=== PATIENT | female | born 1940 | race Caucasian/White ===

== ENCOUNTER 2016-06-18 13:56 | Inpatient (IN) | payer MEDICAID, MEDICARE ==
[~2016-06-18] VITALS: Ht 154.9 cm; Wt 54.2 kg
[~2016-06-18 13:56] MED LIST: ASPI81TA PO; ASPI81TA85 PO; ATOR1TAB21 PO; AUGM875T27 PO; LEVO75TA4 PO; NICO21PAT TD
[2016-06-18] MEDS ORDERED: MIRT30TA3 PO (14:39)
[2016-06-18] MEDS ORDERED: DONETAB5 PO (14:39)
[2016-06-18] MEDS ORDERED: MELA3TAB PO (14:39)
[2016-06-18] MEDS ORDERED: ASPI1TAB PO (14:39)
[2016-06-18 14:50] LABS: BASO % 0.3 % (0.0-1.0); EOS # 0.1 K/mm3 (0.0-0.50); EOS % 1.5 % (0.0-3.0); LARGE UNSTAINED CELL # 0.1 K/mm3 (0.0-0.4); LARGE UNSTAINED CELL % 1.6 % (0.0-4.0); LYMPH # 1.3 K/mm3 (1.5-4.5); LYMPH % 17.6 % (24.0-44.0); MEAN CORPUSCULAR HEMOGLOBIN 29.9 pg (27.0-33.0); MEAN CORPUSCULAR HGB CONC 32.4 g/dl (32.0-36.5); MEAN CORPUSCULAR VOLUME 92.4 fl (80.0-96.0); MONO # 0.3 K/mm3 (0.0-0.8); MONO % 4.4 % (0.0-5.0); NEUTROPHILS # 5.7 K/mm3 (1.8-7.7); NEUTROPHILS % 74.6 % (36.0-66.0); PLATELET COUNT, AUTOMATED 203 k/mm3 (150-450); RED CELL DISTRIBUTION WIDTH 13.6 % (11.5-14.5); WHITE BLOOD COUNT 7.6 K/mm3 (4.0-10.0)
--- NOTE | 2016-06-18 15:22 | REP ---
CT head without contrast: History: Altered mental status. Comparison: 10/30/2015 An area of decreased attenuation is present in the posterior left temporal and parietal lobes. There is dilatation of the overlying cortical sulci. This represents and old infarction. Areas of decreased attenuation are present in the periventricular and subcortical white matter. This represents small vessel ischemic disease. There is no intraparenchymal hemorrhage, mass or midline shift. The ventricular system and cortical sulci as well as subarachnoid space in the posterior fossa are dilated consistent with moderate volume loss. There is no extracerebral collection. There is no fracture. The visualized sinuses are clear. IMPRESSION: 1. 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 2. Small vessel ischemic disease. 3. Moderate volume loss. Signed by Uriah Calderon MD 06/18/2016 03:27 P
[2016-06-18 15:29] LABS: AMPHETAMINES LEVEL URINE NEGATIVE (NEGATIVE); BENZODIAZEPINES URINE NEGATIVE (NEGATIVE); COCAINE METABOLITE URINE NEGATIVE (NEGATIVE); CONTROL LINE INT CTR LINE PRESENT; METHADONE URINE NEGATIVE (NEGATIVE); OPIATES URINE NEGATIVE (NEGATIVE); TRICYCLIC ANTIDEPRESS URINE NEGATIVE (NEGATIVE)
--- NOTE | 2016-06-18 15:31 | REP ---
Portable chest, AP view, 02:47 p.m.: Comparison is 10/30/2015. There are no focal infiltrates or effusions. There is mild diffuse chronic interstitial coarsening, unchanged, compatible with interstitial lung disease versus vascular engorgement. Sternotomy wires and cardiomegaly are again noted, on changed. Impression: There is no significant interval change. Signed by Jose Davis MD 06/18/2016 03:23 P
[2016-06-18] MEDS ORDERED: LORazepam 2 MG/ML VIAL (J2060) As Ordered ONE ×2 (15:51→19:06)
[2016-06-18 15:52] LABS: INR 1.03
[2016-06-18 16:04] LABS: ALBUMIN 2.8 GM/DL (3.2-5.2); ALBUMIN/GLOBULIN RATIO 0.85 (1.00-1.93); ALKALINE PHOSPHATASE 74 U/L (45-117); ALT/SGPT 23 U/L (12-78); ANION GAP 5 MEQ/L (8-16); AST/SGOT 26 U/L (15-37); BILIRUBIN,DIRECT < 0.1 MG/DL (0.0-0.2); BILIRUBIN,TOTAL 0.3 MG/DL (0.2-1.0); BLOOD UREA NITROGEN 12 MG/DL (7-18); CALCIUM LEVEL 8.8 MG/DL (8.8-10.2); CARBON DIOXIDE LEVEL 35 MEQ/L (21-32); CHLORIDE LEVEL 106 MEQ/L (98-107); CREATININE FOR GFR 1.05 MG/DL (0.55-1.02); GLOMERULAR FILTRATION RATE 54.1 (>39); GLUCOSE, FASTING 106 MG/DL (83-110); POTASSIUM SERUM 2.5 MEQ/L (3.5-5.1); SODIUM LEVEL 146 MEQ/L (136-145); TOTAL PROTEIN 6.1 GM/DL (6.4-8.2)
[2016-06-18] MEDS ORDERED: POTASSIUM CHLORIDE 10 MEQ SR TABLET As Ordered ONE (16:25)
[2016-06-18] MEDS ORDERED: KCL 10MEQ IN STERILE WATER 100ML As Ordered ONE (16:26)
[2016-06-18] MEDS ORDERED: ACETAMINOPHEN TAB 650MG DOSE (2X325MG) PO PRN (17:45)
[2016-06-18] MEDS ORDERED: ONDANSETRON 4MG/2ML VIAL (J2405) IV PRN (17:45)
[2016-06-18] MEDS ORDERED: HALOPERIDOL 5 MG/ML VIAL (J1630) IM PRN (17:45)
[2016-06-18] MEDS ORDERED: HALOPERIDOL 5 MG/ML VIAL (J1630) As Ordered ONE (18:00)
--- NOTE | 2016-06-18 18:16 | HPEPDOC ---
Medical History and Physical Date of Admission Jun 18, 2016 at 17:34 History and Physical PRIMARY CARE PROVIDER: ATTENDING: Janice Pires MD CHIEF COMPLAINT: Syncope HISTORY OF PRESENT ILLNESS: This is a 75-year-old female past mental history of advanced dementia, CVA with right upper extremity weakness, CAD status post CABG, hypothyroidism, hyperlipidemia who presents with a syncopal episode. states that him and his were sitting at the kitchen table eating lunch, after which the patient's started to experience diaphoresis, closed her eyes, and put head on the table. states that the patient's was unconscious for 1-2 minutes. After which the patient took about an hour to return to her baseline. states that the patient typically has urinary and fecal incontinence for which she uses a diaper and he changes her 5-8x/day. Denies any convulsions or tongue trauma. states she had no prior episodes of passing out. No history of seizures. Did not complain of any chest pain/palpitations/shortness of breath prior to this incident. PAST MEDICAL HISTORY: As per HPI PAST SURGICAL HISTORY: CABG SOCIAL HISTORY: Denies tobacco, alcohol, illicit drug use. Lives with . FAMILY HISTORY: Noncontributory ALLERGIES: Please see below. REVIEW OF SYSTEMS: HEENT: Denies sore throat/headache CARDIOVASCULAR: Denies chest pain/palpitations RESPIRATORY: No shortness of breath/cough GASTROINTESTINAL: denies nausea/vomiting GENITOURINARY: Denies dysuria/urinary urgency. MUSCULOSKELETAL: Denies myalgias/arthralgias NEUROLOGICAL: Denies any focal weakness Rest of ROS negative. HOME MEDICATIONS: Please see below. PHYSICAL EXAMINATION: Vitals: (see below) General: No acute distress, laying comfortably in bed. HEENT: Moist mucous membranes. Neck: No JVD or lymphadenopathy Cardiac: RRR, No murmurs Pulm: Clear to auscultation b/l. No wheezing, rhonchi Abd: NT/ND + BS Ext: No edema or cyanosis Neuro: Strength 4/5 RUE, 5/5 LUE and BLE. CN 2-12 intact. Negative Babinki. DTR 2+ throughout Difficulty in completing full neuro exam as pt was uncooperative. LABORATORY DATA: See below. IMAGING: CT Head 06/18/16 IMPRESSION: 1. 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 2. Small vessel ischemic disease. 3. Moderate volume loss. CXR 06/18/16 Impression:There is no significant interval change. MICROBIOLOGY: Please see below. ASSESSMENT/PLAN: 1. Syncope- patient reportedly had diaphoresis prior to this episode. We'll trend cardiac markers and check echocardiogram. EKG with no acute ST changes. Given the prolonged altered stay after this episode, there is some question about seizures, although no tongue trauma/convulsions were reported. We'll also check an EEG as well as MRI of the brain. Monitor patient on telemetry. Seizure precautions. Physical therapy, occupational therapy. 2. Hypokalemia - replaced 3. Contraction alkalosis - likely from dehydration - will start gentle IVF hydration 4. H/o CAD s/p CABG - on asa/statin 5. Hypothyroidism - cont synthroid 6. H/o CVA with residual right upper ext weakness - cont asa/statin 7. Advanced dementia 8. HLD - cont statin DVT prophy - enoxaparin Pt will be followed by Dr. Aviles starting 06/19/16 at 7am. Vital Signs Blood pressure 123/64, heart rate 70, respiratory rate 16, oxygen saturation 98 % on room air, afebrile. Laboratory Data Labs 24H Laboratory Tests 2 06/18/16 14:38: White Blood Count 7.6, Red Blood Count 4.33, Hemoglobin 12.9, Hematocrit 40.0, Mean Corpuscular Volume 92.4, Mean Corpuscular Hemoglobin 29.9, Mean Corpuscular Hemoglobin Concent 32.4, Red Cell Distribution Width 13.6, Platelet Count 203, Neutrophils (%) (Auto) 74.6H, Lymphocytes (%) (Auto) 17.6L, Monocytes (%) (Auto) 4.4, Eosinophils (%) (Auto) 1.5, Basophils (%) (Auto) 0.3, Neutrophils # (Auto) 5.7, Lymphocytes # (Auto) 1.3L, Monocytes # (Auto) 0.3, Eosinophils # (Auto) 0.1, Basophils # (Auto) 0.0, Large Unclassified Cells # 0.1 , Large Unclassified Cells % 1.6 06/18/16 15:06: Urine Amorphous Sediment , Urine Amphetamine Level NEGATIVE, Urine Benzodiazepines Screen NEGATIVE, Urine Cannabinoids NEGATIVE, Urine Cocaine Metabolite NEGATIVE, Urine Opiates Screen NEGATIVE, Urine Appearance CLEAR, Urine Color YELLOW, Urine pH 6.0, Urine Specific Addison 1.013, Urine Protein NEGATIVE, Urine Glucose (UA) NEGATIVE, Urine Ketones NEGATIVE, Urine Urobilinogen 0.2, Urine Bilirubin NEGATIVE, Urine Leukocyte Esterase NEGATIVE, Urine Bacteria (Auto) NEGATIVE, Urine Barbiturates, Qualitative NEGATIVE, Urine Blood 1+H, Urine Calcium Carbonate Cryst(Auto) , Urine Calcium Oxalate Cryst ( Auto) , Urine Calcium Phosphate Anna (Auto) , Urine Cellular Casts , Urine Cystine Crystals , Urine Granular Casts (Auto) , Urine Hyaline Casts (Auto) 0, Urine Leucine Crystals , Urine Methadone Screen NEGATIVE, Urine Mucus (Auto) SMALL, Urine Nitrite NEGATIVE, Urine Oval Fat Bodies (Auto) , Urine RBC (Auto) 14H, Urine Renal Epithelial Cells , Urine Sperm (Auto) , Urine Squamous Epithelial Cells 0, Urine Transitional Epithelial Cells , Urine Trichomonas ( Auto) , Urine Tricyclic Antidepressants NEGATIVE, Urine Triple Phosphate Cryst ( Auto) , Urine Tyrosine Crystals , Urine Uric Acid Crystals (Auto) , Urine WBC ( Auto) 5H, Urine Waxy Casts (Auto) , Urine Yeast-Like Cells (Auto) 06/18/16 15:31: Prothromb Time International Ratio 1.03, Prothrombin Time 13.6 06/18/16 15:32: Acetaminophen Level < 2.0L, Aspartate Amino Transf (AST/SGOT) 26, Alanine Aminotransferase (ALT/SGPT) 23, Alkaline Phosphatase 74, Total Bilirubin 0.3, Direct Bilirubin < 0.1, Albumin 2.8L, Albumin/Globulin Ratio 0.85L, Anion Gap 5L , Calcium Level 8.8, Creatine Kinase MB 3.1, Creatine Kinase MB Relative Index 3.19, Glomerular Filtration Rate 54.1, Salicylates Level < 1.7L, Thyroid Stimulating Hormone (TSH) 2.910, Total Creatine Kinase 97, Total Protein 6.1L, Troponin I < 0.02 CBC/BMP Laboratory Tests 06/18/16 14:38 Red Blood Count 4.33, Mean Corpuscular Volume 92.4, Mean Corpuscular Hemoglobin 29.9, Mean Corpuscular Hemoglobin Concent 32.4, Red Cell Distribution Width 13.6 , Neutrophils (%) (Auto) 74.6 H, Lymphocytes (%) (Auto) 17.6 L, Monocytes (%) ( Auto) 4.4, Eosinophils (%) (Auto) 1.5, Basophils (%) (Auto) 0.3, Neutrophils # ( Auto) 5.7, Lymphocytes # (Auto) 1.3 L, Monocytes # (Auto) 0.3, Eosinophils # ( Auto) 0.1, Basophils # (Auto) 0.0 06/18/16 15:32 Microbiology Microbiology 06/18/16 Urine Culture, Received Pending Home Medications Scheduled Aspirin (Aspirin 81) 81 Mg Tab 81 MG PO DAILY Atorvastatin Calcium (Atorvastatin Calcium) 20 Mg Tab 20 MG PO DAILY PT TAKES IN AM Donepezil Hcl (Donepezil HCl) 5 Mg Tab 5 MG PO DAILY Levothyroxine Sodium (Synthroid) 75 Mcg Tab 75 MCG PO QAM Mirtazapine (Mirtazapine) 30 Mg Tab 30 MG PO DAILY Scheduled PRN Melatonin (Melatonin) 3 Mg Tab 3 MG PO DAILY PRN PRN AGITATION Allergies Coded Allergies: No Known Drug Allergy (Verified Allergy, Unknown, 08/11/12) JANICE PIRES MD Jun 18, 2016 18:16
--- NOTE | 2016-06-18 21:34 | ECGEPIP ---
Stationary ECG Study [facility] - ED Test Date: 2016-06-18 Pat Name: KELVIN GUAN Department: Room: - Gender: F Licensing Court Magistrate: ailyn : 1940 Requested By: AMBERLY DURHAM Order Number: [id number] Reading MD: Zulema Fitch Measurements Intervals [place] Rate: 64 P: 44 CO: 124 QRS: -37 QRSD: 106 T: 68 QT: 433 QTc: 447 Interpretive Statements SINUS RHYTHM WITH OCCASIONAL SUPRAVENTRICULAR PREMATURE COMPLEXES MARKED LEFT AXIS DEVIATION POSSIBLE RIGHT VENTRICULAR CONDUCTION DELAY NONSPECIFIC ST & T-WAVE ABNORMALITY SIMILAR 10/30/15 Electronically Signed On 06-18-2016 21:34:10 EST by Zulema Fitch
--- NOTE | 2016-06-18 21:50 | EDDOCDS ---
Nurse's Notes [facility] Name: Angela Patel Age: 75 yrs Sex: Female : 1940 Arrival Date: 06/18/2016 Time: 13:56 Bed MRI Private MD: Kushal Johnson MD Diagnosis: Hypokalemia;Altered mental status, unspecified Presentation: 06/18 13:59 Presenting complaint: EMS states: sitting with and had 1 to 2 minute syncopal kr3 episode. Suicide/Homicide risk assessment- the patient denies having any suicidal and/or homicidal ideations and does not present with any other emotional, behavioral or mental health complaints. Status: Patient is not a in service education teacher or dependent. Transition of care: patient was not received from another setting of care. 13:59 Method Of Arrival: Ambulance kr3 13:59 Acuity: GEENA Level 3 kr3 14:12 Adult Sepsis Screening: The patient does not have new or worsening altered mentation. kr3 Patient's respiratory rate is less than 22. Patient has a qSOFA score of 0- Negative Sepsis Screen. Care prior to arrival: Glucose check. 115. Triage Assessment: 14:12 General: Appears in no apparent distress, comfortable, Behavior is appropriate for age. kr3 General: Appears unkempt. Pain: Denies pain. The patient is triaged at the bedside. See Assessment in Nurses Notes section of ED record. Neurological: Level of Consciousness is awake, confused, Moves all extremities. Facial symmetry appears normal. Respiratory: Respiratory effort is even, unlabored. GI: other incontinent of stool. Derm: Skin is normal. Historical: - Allergies: no known allergies; - Home Meds: 1. aspirin 81 mg Oral chew 1 tab once daily (Last dose: 06/18/2016) 2. mirtazapine 30 mg Oral TbDL 1 tab once daily (Last dose: 06/18/2016) 3. levothyroxine 75 mcg Oral cap 1 cap once daily (Last dose: 06/18/2016) 4. donepezil 5 mg oral TbDL 1 tab once daily (Last dose: 06/18/2016) 5. atorvastatin 20 mg oral tab 1 tab once daily (Last dose: 06/18/2016) - PMHx: CVA; Dementia; Hypercholesterolemia; Hypothyroidism; Alzheimers; - PSHx: CABG; - Social history: Smoking status: Patient uses tobacco products, current every day smoker. No barriers to communication noted, The patient speaks fluent Jamaican. - Family history: Not pertinent. - : The pt / caregiver states he / she is not on anticoagulants. Home medication list is obtained from family members, pill bottles. - Exposure Risk Screening:: None identified. Screenin:15 Screening information is obtained from family members. Fall risk: No risks identified. kr3 Assistance ADL's: Requires assistance with meal preparation, this assistance is provided by family members, bathing, assistance is provided by family members, dressing, assistance is provided by family members, toileting, assistance is provided by family members, housework, assistance is provided by family members, medication administration, assistance is provided by family members. Abuse/DV Screen: The patient / caregiver reports he/she is: pt cannot be assessed for living situation at this time. Nutritional screening: No deficits noted. Advance Directives: Currently, there is no health care proxy. There is no Power of Cashier Or Checker Stock Clerk. home support is adequate. Assessment: 14:16 Reassessment: Patient appears in no apparent distress at this time. Pain: Denies pain. kr3 Neurological: Level of Consciousness is awake, alert, Oriented to person, per normal mentation . 15:45 General: Patient is in stretcher with at bedside. Respirations are even and ja5 unlabored, color is pink. She is having a hard time sitting still and her agitation is increasing. Provider has been notified.. 16:40 General: Patient became restless and pulled her IV out of left hand. Catheter in tact, ja5 no swelling or bleeding noted.. 17:05 General: Patient resting in stretcher with at bedside, respirations are even ja5 and unlabored, color is pink, SR on manager monitoring, patient has no complaints of pain. Food tray has been ordered. at bedside, side rails up, bed in low position.. 17:48 General: Patient confused and tried to get out of bed and leave, she pulled the IV in ja5 her right AC out. Bleeding controlled, no swelling, catheter in tact. . 18:56 General: Patient is very restless and confused, laying in stretcher, PUFFER TENDER at bedside ja5 because had to go home. New IV started to right wrist, patient tolerated well Dr. Pires aware that the MRI was not done due to patient condition.. 20:28 Reassessment: Patient resting at present time. Patient is currently in bed and asleep. cf2 Will continue to monitor . Adult Sepsis Screening: The patient does not have new or worsening altered mentation. Patient's respiratory rate is less than 22. Systolic blood pressure is greater than 100. Patient has a qSOFA score of 0- Negative Sepsis Screen. EENT: No deficits noted. Cardiovascular: No deficits noted. Respiratory: No deficits noted. GI: No deficits noted. : No deficits noted. Derm: No deficits noted. Musculoskeletal: No deficits noted. Injury Description: No known injury. Vital Signs: 14:13 BP 123 / 87 (auto/); ja5 14:13 Pulse 60 MON; ja5 14:13 BP 123 / 87 (auto/); ja5 14:13 Pulse 60 MON; ja5 14:15 BP 123 / 87; Pulse 68; Resp 18; Temp 98.2(O); Pulse Ox 98% on R/A; Weight 55.34 kg; dem1 Height 5 ft. 1 in. (154.94 cm); Pain 0/10; 14:47 Pulse 70 MON; Pulse Ox 97% ; ja5 15:01 BP 123 / 64 (auto/); ja5 15:11 BP 159 / 65 (auto/); ja5 16:43 BP 141 / 65 (auto/); kr3 16:46 Pulse 64 MON; Pulse Ox 92% ; kr3 18:43 BP 158 / 69 (auto/); kr3 18:44 Pulse 66 MON; Resp 16; Temp 98(TE); Pulse Ox 97% ; kr3 19:30 BP 121 / 76; Pulse 60; Resp 18; Pulse Ox 94% on R/A; cf2 21:46 BP 112 / 55; Pulse 54; Resp 18; Temp 98.0; Pulse Ox 97% on R/A; Pain 0/10; cf2 14:15 Body Mass Index 23.05 (55.34 kg, 154.94 cm) [facility] Vitals: 14:12 Log In Time N/A - ambulance arrival. kr3 ED Course: 13:59 Patient visited by Den Addison PCA. jrd 13:59 Stacey Sanford,[place] is Primary Nurse. jrd 13:59 Love Mcneill,RN is Primary Nurse. jrd 13:59 Kushal Johnson is Private Physician. jrd 13:59 Patient moved to Waiting jrd 13:59 Patient moved to 8 jrd 14:00 Triage Initiated kr3 14:02 [facility] ke 14:02 Patient visited by Maximo Sanders FNP. ke 14:02 Patient visited by Maximo Sanders FNP. ke 14:15 The patient / caregiver is instructed regarding the plan of care and ED course. kr3 Accompanied by Family Member, Patient has correct armband on for positive identification. Placed in gown. Bed in low position. Call light in reach. Side rails up X2. media monitor on. Pulse ox on. NIBP on. Cleaned of incontinence. 14:22 EKG done. (by ED staff). Reviewed by Maximo DURHAM. dem1 14:24 Patient visited by Shahida Grewal. dem1 14:40 Maintain field IV. Dressing intact. Site clean & dry. Gauge & site: 20g Left hand. ja5 Flushed left hand. 14:59 Patient visited by Maximo Sanders FNP. ke 15:08 Urinalysis Sent. kr3 15:08 Urine Culture Sent. kr3 15:09 Drug Eval Toxicology ED Only Sent. ld5 15:29 Patient visited by Maximo Sanders FNP. ke 15:34 [facility] Payment Agreement was scanned into [employer] and attached to record. lg 15:45 Patient visited by Love Mcneill RN. ja5 15:52 CT Head Without Contrast Returned. EDMS 15:52 Chest, 1 View Returned. EDMS 16:07 Patient visited by Maximo Sanders FNP. ke 16:14 Notified nurse practitioner of potassium of 2.5. kr3 16:32 Patient visited by Maximo Sanders FNP. ke 16:37 Alber Pires is Hospitalizing Provider. ke 16:37 Patient visited by Rupa Fontana PCA. rs6 16:54 Inserted peripheral IV: in right antecubital area. ja5 18:10 Patient moved to MRI kr3 18:55 Inserted saline lock: 20 gauge in right. ja5 19:09 Primary Nurse role handed off by Stacey Sanford,[place] cf2 19:09 Luciana Crow RN is Primary Nurse. cf2 19:09 Patient visited by Luciana Crow RN. cf2 20:28 No procedures done that require assistance. cf2 20:30 Patient visited by Luciana Crow RN. cf2 20:43 Patient visited by Luciana Crow RN. cf2 21:38 Patient visited by Luciana Crow RN. cf2 21:46 Patient visited by Luciana Crow RN. cf2 21:49 Alayna Trejo MD is Attending Physician. cf2 Administered Medications: Discontinued: NS 0.9% 1000 ml IV at 250 mL/hr continuous Discontinued: Potassium Chloride in 100cc sterile water 10 mEq IV at 100 mL/hr once over 1 hrs 15:40 Drug: NS 0.9% 1000 ml [sodium chloride 0.9 % intravenous solution] Route: IV; Rate: 250 kr3 mL/hr; Site: left hand; 21:36 Follow up: Response: No significant change. cf2 15:53 Drug: LORazepam 0.5 mg [lorazepam 2 mg/mL injection solution (0.25 mL)] Route: IVP; ja5 Site: left hand; 21:36 Follow up: Response: No significant change. cf2 16:48 Drug: Potassium Chloride in 100cc sterile water 10 mEq [potassium chloride 10 mEq/100 ja5 mL intravenous piggyback] {Co-Signature: kr3 (Stacey Sanford RN).} Route: IV; Rate: 100 mL/hr; Infused Over: 1 hrs; Site: right antecubital; 16:53 Drug: Potassium Chloride 40 mEq [potassium chloride ER 10 mEq tablet,extended release ja5 (4 tabs)] Route: PO; 21:36 Follow up: Response: No significant change. cf2 18:02 Drug: -Haloperidol Lactate 2 mg [haloperidol lactate 5 mg/mL injection solution (0.4 kr3 mL)] Route: IM; Site: left deltoid; 21:36 Follow up: Response: No significant change. cf2 19:09 Drug: LORazepam 0.5 mg [lorazepam 2 mg/mL injection solution (0.25 mL)] Route: IVP; kr3 Site: right hand; 21:35 Follow up: Response: No significant change. cf2 Order Results: Lab Order: Acetaminophen Level; SPEC'M 06/18/16 15:32 Test: ACETAMINOPHEN LEVEL; Value: < 2.0; Range: 10.0-30.0; Abnormal: Below low normal; Units: UG/ML; Status: F Lab Order: CBC with Diff; SPEC'M 06/18/16 14:38 Test: WHITE BLOOD COUNT; Value: 7.6; Range: 4.0-10.0; Units: K/mm3; Status: F Test: RED BLOOD COUNT; Value: 4.33; Range: 4.00-5.40; Units: M/mm3; Status: F Test: HEMOGLOBIN; Value: 12.9; Range: 12.0-16.0; Units: g/dl; Status: F Test: HEMATOCRIT; Value: 40.0; Range: 36.0-47.0; Units: %; Status: F Test: MEAN CORPUSCULAR VOLUME; Value: 92.4; Range: 80.0-96.0; Units: fl; Status: F Test: MEAN CORPUSCULAR HEMOGLOBIN; Value: 29.9; Range: 27.0-33.0; Units: pg; Status: F Test: MEAN CORPUSCULAR HGB CONC; Value: 32.4; Range: 32.0-36.5; Units: g/dl; Status: F Test: RED CELL DISTRIBUTION WIDTH; Value: 13.6; Range: 11.5-14.5; Units: %; Status: F Test: PLATELET COUNT, AUTOMATED; Value: 203; Range: 150-450; Units: k/mm3; Status: F Test: NEUTROPHILS %; Value: 74.6; Range: 36.0-66.0; Abnormal: Above high normal; Units: %; Status: F Test: LYMPH %; Value: 17.6; Range: 24.0-44.0; Abnormal: Below low normal; Units: %; Status: F Test: MONO %; Value: 4.4; Range: 0.0-5.0; Units: %; Status: F Test: EOS %; Value: 1.5; Range: 0.0-3.0; Units: %; Status: F Test: BASO %; Value: 0.3; Range: 0.0-1.0; Units: %; Status: F Test: LARGE UNSTAINED CELL %; Value: 1.6; Range: 0.0-4.0; Units: %; Status: F Test: NEUTROPHILS #; Value: 5.7; Range: 1.8-7.7; Units: K/mm3; Status: F Test: LYMPH #; Value: 1.3; Range: 1.5-4.5; Abnormal: Below low normal; Units: K/mm3; Status: F Test: MONO #; Value: 0.3; Range: 0.0-0.8; Units: K/mm3; Status: F Test: EOS #; Value: 0.1; Range: 0.0-0.50; Units: K/mm3; Status: F Test: BASO #; Value: 0.0; Range: 0.0-0.2; Units: K/mm3; Status: F Test: LARGE UNSTAINED CELL #; Value: 0.1; Range: 0.0-0.4; Units: K/mm3; Status: F Lab Order: Cardiac Injury Profile; SPEC'M 06/18/16 15:32 Test: CPK CREATINE PHOSPHOKINASE; Value: 97; Range: 26-192; Units: U/L; Status: F Test: CK-MB VALUE MASS; Value: 3.1; Range: 0.0-3.6; Units: NG/ML; Status: F Test: MB/CK RELATIVE INDEX; Value: 3.19; Range: < OR =4; Status: F Test Note: ; DIAGNOSIS CRITERIA MMB ng/ml Relative Index (RI) NON-AMI < or = 5 N/A DUNBAR ZONE > 5 < or = 4 AMI > 5 > 4 Lab Order: Drug Eval Toxicology ED Only; SPEC'M 06/18/16 15:06 Test: AMPHETAMINES LEVEL URINE; Value: NEGATIVE; Range: NEGATIVE; Status: F Test: BARBITURATES URINE; Value: NEGATIVE; Range: NEGATIVE; Status: F Test: BENZODIAZEPINES URINE; Value: NEGATIVE; Range: NEGATIVE; Status: F Test: CANNABINOIDS URINE; Value: NEGATIVE; Range: NEGATIVE; Status: F Test: COCAINE METABOLITE URINE; Value: NEGATIVE; Range: NEGATIVE; Status: F Test: METHADONE URINE; Value: NEGATIVE; Range: NEGATIVE; Status: F Test: OPIATES URINE; Value: NEGATIVE; Range: NEGATIVE; Status: F Test: TRICYCLIC ANTIDEPRESS URINE; Value: NEGATIVE; Range: NEGATIVE; Status: F Test Note: ; ALL PRESUMPTIVE POSITIVE FINDINGS ARE UNCONFIRMED NORMAL VALUES THRESHOLD IN NG/ML AMPHETAMINES 1000 METHAMPHETAMINES 1000 BARBITURATES 300 BENZODIAZEPINES 300 CANNABINOIDS (THC) 50 COCAINE METABOLITE 300 METHADONE 300 OPIATES 300 PHENCYCLIDINE 25 TRICYCLIC ANTIDEPRESSANTS 1000 RESULTS ARE FOR MEDICAL PURPOSES ONLY. ALL URINE SPECIMENS WILL BE SAVED FOR 3 DAYS. IF CONFIRMATION OF A PRESUMPTIVE POSTIVE SCREEN RESULT IS DESIRED, CALL CHEMISTRY ([phone]) AND REQUEST URINE TO BE SENT TO REFERENCE LAB. FOR A LIST OF CLOSELY RELATED COMPOUNDS PLEASE CALL THE LAB. Lab Order: Liver Profile; SPEC'M 06/18/16 15:32 Test: AST/SGOT; Value: 26; Range: 15-37; Units: U/L; Status: F Test: ALT/SGPT; Value: 23; Range: 12-78; Units: U/L; Status: F Test: ALKALINE PHOSPHATASE; Value: 74; Range: 45-117; Units: U/L; Status: F Test: BILIRUBIN,TOTAL; Value: 0.3; Range: 0.2-1.0; Units: MG/DL; Status: F Test: BILIRUBIN,DIRECT; Value: < 0.1; Range: 0.0-0.2; Units: MG/DL; Status: F Test: TOTAL PROTEIN; Value: 6.1; Range: 6.4-8.2; Abnormal: Below low normal; Units: GM/DL; Status: F Test: ALBUMIN; Value: 2.8; Range: 3.2-5.2; Abnormal: Below low normal; Units: GM/DL; Status: F Test: ALBUMIN/GLOBULIN RATIO; Value: 0.85; Range: 1.00-1.93; Abnormal: Below low normal; Status: F Lab Order: MED Profile; SPEC'M 06/18/16 15:32 Test: GLUCOSE, FASTING; Value: 106; Range: 83-110; Units: MG/DL; Status: F Test: BLOOD UREA NITROGEN; Value: 12; Range: 7-18; Units: MG/DL; Status: F Test: CREATININE FOR GFR; Value: 1.05; Range: 0.55-1.02; Abnormal: Above high normal; Units: MG/DL; Status: F Test: GLOMERULAR FILTRATION RATE; Value: 54.1; Range: >39; Status: F Test: SODIUM LEVEL; Value: 146; Range: 136-145; Abnormal: Above high normal; Units: MEQ/L; Status: F Test: POTASSIUM SERUM; Value: 2.5; Range: 3.5-5.1; Abnormal: Critical Low; Units: MEQ/L; Status: F Test: CHLORIDE LEVEL; Value: 106; Range: 98-107; Units: MEQ/L; Status: F Test: CARBON DIOXIDE LEVEL; Value: 35; Range: 21-32; Abnormal: Above high normal; Units: MEQ/L; Status: F Test: ANION GAP; Value: 5; Range: 8-16; Abnormal: Below low normal; Units: MEQ/L; Status: F Test: CALCIUM LEVEL; Value: 8.8; Range: 8.8-10.2; Units: MG/DL; Status: F Test Note: ; Units are mL/min/1.73 m2 Chronic Kidney Disease Staging per NKF: Stage I & II GFR >=60 Normal to Mildly Decreased Stage III GFR 30-59 Moderately Decreased Stage IV GFR 15-29 Severely Decreased Stage V GFR <15 Very Little GFR Left ESRD GFR <15 on TUGBOAT PILOT Lab Order: Salicylate Level; SPEC06/18/16 15:32 Test: SALICYLATE LEVEL; Value: < 1.7; Range: 5.0-30.0; Abnormal: Below low normal; Units: MG/DL; Status: F Lab Order: Thyroid Stimulating Hormone; SPEC06/18/16 15:32 Test: THYROID STIMULATING HORMONE; Value: 2.910; Range: 0.358-3.740; Units: uIU/ML; Status: F Lab Order: Troponin; SPEC06/18/16 15:32 Test: TROPONIN I; Value: < 0.02; Range: < 0.10; Units: NG/ML; Status: F Test Note: ; Troponin I Reference Interval for [employer] LOCI: 99th Percentile= 0.00-0.045 ng/ml Risk Stratification: <= 0.10 ng/ml Decreased Risk for Adverse Clinical Events. 0.10-1.50 ng/ml Increased Risk for Adverse Clinical Events. Evaluation of additional criterion and/or repeat testing in 2-6 hours is suggested to rule out myocardial damage. >= 1.50 ng/ml Indicative of Myocardial Injury. Lab Order: Urinalysis; SPEC'M 06/18/16 15:06 Test: APPEARANCE, URINE; Value: CLEAR; Range: CLEAR; Status: F Test: COLOR, URINE; Value: YELLOW; Range: YELLOW; Status: F Test: PH,URINE; Value: 6.0; Range: 5.0-9.0; Units: UNITS; Status: F Test: SPECIFIC GRAVITY URINE AUTO; Value: 1.013; Range: 1.002-1.035; Status: F Test: PROTEIN, URINE AUTO; Value: NEGATIVE; Range: NEGATIVE; Units: mg/dL; Status: F Test: GLUCOSE, URINE (UA) AUTO; Value: NEGATIVE; Range: NEGATIVE; Units: mg/dL; Status: F Test: KETONE, URINE AUTO; Value: NEGATIVE; Range: NEGATIVE; Units: mg/dL; Status: F Test: UROBILINOGEN, URINE AUTO; Value: 0.2; Range: 0.0-2.0; Units: mg/dL; Status: F Test: BILIRUBIN, URINE AUTO; Value: NEGATIVE; Range: NEGATIVE; Status: F Test: NITRITE, URINE AUTO; Value: NEGATIVE; Range: NEGATIVE; Status: F Test: LEUKOCYTE ESTERASE, URINE AUTO; Value: NEGATIVE; Range: NEGATIVE; Status: F Test: BLOOD, URINE BLOOD; Value: 1+; Range: NEGATIVE; Abnormal: Above high normal; Status: F Test: WBC, URINE AUTO; Value: 5; Range: 0-3; Abnormal: Above high normal; Units: /HPF; Status: F Test: RBC, URINE AUTO; Value: 14; Range: 0-3; Abnormal: Above high normal; Units: /HPF; Status: F Test: BACTERIA, URINE AUTO; Value: NEGATIVE; Range: NEGATIVE; Status: F Test: SQUAMOUS EPITHELIAL CELL UR AU; Value: 0; Range: 0-6; Units: /HPF; Status: F Test: MUCUS, URINE; Value: SMALL; Range: NEGATIVE; Status: F Test: HYALINE CAST, URINE AUTO; Value: 0; Range: 0-1; Units: /LPF; Status: F Lab Order: PT/INR; SPEC'M 06/18/16 15:31 Test: PROTHROMBIN TIME; Value: 13.6; Range: 12.3-14.5; Units: SECONDS; Status: F Test: INR; Value: 1.03; Status: F Test Note: ; THERAPUTIC HUMAN INR VALUES INDICATIONS NORMAL RANGES PROPHYLAXIS/TREATMENT OF: VENOUS THROMBOSIS 2.0-3.0 PULMONARY EMBOLISM 2.0-3.0 PREVENTION OF SYSTEMIC EMBOLISM FROM: TISSUE HEART VALVES 2.0-3.0 ACUTE MYOCARDIAL INFARCTION 2.0-3.0 VALVULAR HEART DISEASE 2.0-3.0 ATRIAL FIBRILLATION 2.0-3.0 MECHANICAL VALVES(HIGH RISK) 2.5-3.5 RECURRENT MYOCARDIAL INFARCTION 2.5-3.5 Radiology Order: CT Head Without Contrast Test: CT Head Without Contrast REASON FOR EXAMINATION: altered loc; CT head without contrast:; ; History: Altered mental status.; ; Comparison: 10/30/2015; ; An area of decreased attenuation is present in the posterior left temporal and; parietal lobes. There is dilatation of the overlying cortical sulci. This; represents and old infarction. Areas of decreased attenuation are present in the; periventricular and subcortical white matter. This represents small vessel; ischemic disease. There is no intraparenchymal hemorrhage, mass or midline shift.; The ventricular system and cortical sulci as well as subarachnoid space in the; posterior fossa are dilated consistent with moderate volume loss. There is no; extracerebral collection. There is no fracture. The visualized sinuses are; clear.; ; IMPRESSION:; ; 1. 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 Small vessel ischemic disease.; ; 3. Moderate volume loss.; ; ; Signed by; Uriah Calderon MD 06/18/2016 03:27 P; Radiology Order: Chest, 1 View Test: Chest, 1 View REASON FOR EXAMINATION: altereed loc; Portable chest, AP view, 02:47 p.m.:; ; Comparison is 10/30/2015.; ; There are no focal infiltrates or effusions.; ; There is mild diffuse chronic interstitial coarsening, unchanged, compatible with; interstitial lung disease versus vascular engorgement.; ; Sternotomy wires and cardiomegaly are again noted, on changed.; ; Impression:; ; There is no significant interval change.; ; ; Signed by; Jose Davis MD 06/18/2016 03:23 P; Outcome: 15:08 CT Study completed. kr3 16:37 Decision to Hospitalize by Provider. bre 21:38 The following High Risk Discharge criteria are identified: Yes, Admitted to PCU cf2 accompanied by nurse. Condition: stable. Property :Personal belongings accompany Pt. 21:48 Discharge Assessment: Patient awake, alert and oriented x 3. No cognitive and/or cf2 functional deficits noted. Patient verbalized understanding of disposition instructions. Patient awake, alert, Oriented to person, patient administered narcotics - yes. Patient was admitted to the hospital or transferred to another facility. 21:49 Patient left the ED. cf2 Signatures: Dispatcher [employer] EDMS Jonathon Joseph, Reg Reg lg Maximo Sanders, CLINICAL RESEARCH NURSE COORDINATOR CLINICAL RESEARCH NURSE COORDINATOR Stacey Green,RN RN kr3 Karla Lan,RN RN ld5 Shahida Grewal dem1 Den Addison, PUFFER TENDER PUFFER TENDER jrd Rupa Fontana, PUFFER TENDER PUFFER TENDER rs6 Luciana Crow,RN RN cf2 Love McneillRN RN ja5 Stacey Sanford RN kr3 Corrections: (The following items were deleted from the chart) 17:46 15:09 Pulse 64bpm; Monitor; Pulse Ox 88%; ja5 ja5 19:04 18:56 General: Patient is very restless and confused, laying in stretcher, PUFFER TENDER at ja5 bedside because had to go home. New IV started to right wrist, patient tolerated well.. ja5 MTDD
--- NOTE | 2016-06-18 21:50 | EDDOCDS ---
Physician Documentation [facility] Name: Angela Patel Age: 75 yrs Sex: Female : 1940 Arrival Date: 06/18/2016 Time: 13:56 Bed [facility] Private MD: Kushal Johnson MD Disposition: 06/18/16 16:37 Hospitalization ordered by Alber Pires for Inpatient Admission. Preliminary diagnosis are Hypokalemia, Altered mental status, unspecified. - Bed requested for PCU. - Status is Inpatient Admission. cf2 - Condition is Stable. - Problem is an ongoing problem. - Symptoms are unchanged. Historical: - Allergies: no known allergies; - Home Meds: 1. aspirin 81 mg Oral chew 1 tab once daily (Last dose: 06/18/2016) 2. mirtazapine 30 mg Oral TbDL 1 tab once daily (Last dose: 06/18/2016) 3. levothyroxine 75 mcg Oral cap 1 cap once daily (Last dose: 06/18/2016) 4. donepezil 5 mg oral TbDL 1 tab once daily (Last dose: 06/18/2016) 5. atorvastatin 20 mg oral tab 1 tab once daily (Last dose: 06/18/2016) - PMHx: CVA; Dementia; Hypercholesterolemia; Hypothyroidism; Alzheimers; - PSHx: CABG; - Social history: Smoking status: Patient uses tobacco products, current every day smoker. No barriers to communication noted, The patient speaks fluent Faroese. - Family history: Not pertinent. - : The pt / caregiver states he / she is not on anticoagulants. Home medication list is obtained from family members, pill bottles. - Exposure Risk Screening:: None identified. Vital Signs: 06/18 14:13 BP 123 / 87 (auto/); ja5 14:13 Pulse 60 MON; ja5 14:13 BP 123 / 87 (auto/); ja5 14:13 Pulse 60 MON; ja5 14:15 BP 123 / 87; Pulse 68; Resp 18; Temp 98.2(O); Pulse Ox 98% on R/A; Weight 55.34 kg / dem1 122 lbs; Height 5 ft. 1 in. (154.94 cm); Pain 0/10; 14:47 Pulse 70 MON; Pulse Ox 97% ; ja5 15:01 BP 123 / 64 (auto/); ja5 15:11 BP 159 / 65 (auto/); ja5 16:43 BP 141 / 65 (auto/); kr3 16:46 Pulse 64 MON; Pulse Ox 92% ; kr3 18:43 BP 158 / 69 (auto/); kr3 18:44 Pulse 66 MON; Resp 16; Temp 98(TE); Pulse Ox 97% ; kr3 19:30 BP 121 / 76; Pulse 60; Resp 18; Pulse Ox 94% on R/A; cf2 21:46 BP 112 / 55; Pulse 54; Resp 18; Temp 98.0; Pulse Ox 97% on R/A; Pain 0/10; cf2 14:15 Body Mass Index 23.05 (55.34 kg, 154.94 cm) dem1 MDM: 14:13 Image Consultant/Pulse Ox/q 15 min VS ordered. ke 14:13 Accucheck ordered. ke 14:13 IV Saline Lock ordered. ke 14:13 Oxygen at 4L/Min NC or Home dosage ordered. ke 14:13 Rhythm Strip to chart ordered. ke 14:13 Straight cath ordered. ke 14:15 Acetaminophen Level Ordered. EDMS 14:15 CBC with Diff Ordered. EDMS 14:15 Cardiac Injury Profile Ordered. EDMS 14:15 Drug Eval Toxicology ED Only Ordered. EDMS 14:15 Liver Profile Ordered. EDMS 14:15 MED Profile Ordered. EDMS 14:15 Salicylate Level Ordered. EDMS 14:15 Thyroid Stimulating Hormone Ordered. EDMS 14:15 Troponin Ordered. EDMS 14:15 Urinalysis Ordered. EDMS 14:15 PT/INR Ordered. EDMS 14:15 Urine Culture Ordered. EDMS 14:16 Chest, 1 View Ordered. EDMS 14:16 CT Head Without Contrast Ordered. EDMS 14:16 ECG WITH READING ER PHYS+CARDIAG ordered. EDMS 14:21 BED REQUEST+ADM ordered. EDMS 15:09 Financial registration complete. lg 15:34 [facility] [place] Agreement was scanned into [employer] and attached to record. lg 15:38 NS 0.9% 1000 ml IV at 250 mL/hr continuous ordered. ke 15:44 LORazepam 0.5 mg IVP once ordered. ke 16:14 Potassium Chloride Extended Release Tablet 40 mEq PO once ordered. ke 16:14 Potassium Chloride in 100cc sterile water 10 mEq IV at 100 mL/hr once over 1 hrs ke ordered. 16:33 Acetaminophen Level Reviewed. ke 16:33 CBC with Diff Reviewed. ke 16:33 Liver Profile Reviewed. ke 16:33 MED Profile Reviewed. ke 16:33 Salicylate Level Reviewed. ke 16:33 Urinalysis Reviewed. ke 16:33 Cardiac Injury Profile Reviewed. ke 16:33 Drug Eval Toxicology ED Only Reviewed. ke 16:33 Thyroid Stimulating Hormone Reviewed. ke 16:33 Troponin Reviewed. ke 16:33 PT/INR Reviewed. ke 16:33 CT Head Without Contrast Reviewed. ke 16:33 Chest, 1 View Reviewed. ke 16:56 SOFT+DIET ordered. EDMS 17:40 Admission / Observation Status ordered. EDMS 17:41 ECHOCARD,DOPPLER/COLOR FLOW ordered. EDMS 17:41 2 GRAM SODIUM DIET ordered. EDMS 17:41 CARDIAC INJURY PROFILE Ordered. EDMS 17:41 TROPONIN Ordered. EDMS 17:41 MRI Brain without Contrast Ordered. EDMS 17:42 PHYSICAL THERAPY EVAL & TREAT ordered. EDMS 17:44 BASIC METABOLIC PROFILE Ordered. EDMS 17:44 MAGNESIUM LEVEL Ordered. EDMS 18:09 -Haloperidol Lactate 2 mg IM once ordered. kr3 19:06 LORazepam 0.5 mg IVP once ordered. ke 19:32 CARDIAC INJURY PROFILE Ordered. EDMS 19:33 TROPONIN Ordered. EDMS Administered Medications: Discontinued: NS 0.9% 1000 ml IV at 250 mL/hr continuous Discontinued: Potassium Chloride in 100cc sterile water 10 mEq IV at 100 mL/hr once over 1 hrs 15:40 Drug: NS 0.9% 1000 ml [sodium chloride 0.9 % intravenous solution] Route: IV; Rate: 250 kr3 mL/hr; Site: left hand; 21:36 Follow up: Response: No significant change. cf2 15:53 Drug: LORazepam 0.5 mg [lorazepam 2 mg/mL injection solution (0.25 mL)] Route: IVP; ja5 Site: left hand; 21:36 Follow up: Response: No significant change. cf2 16:48 Drug: Potassium Chloride in 100cc sterile water 10 mEq [potassium chloride 10 mEq/100 ja5 mL intravenous piggyback] {Co-Signature: kr3 (Stacey Sanford RN).} Route: IV; Rate: 100 mL/hr; Infused Over: 1 hrs; Site: right antecubital; 16:53 Drug: Potassium Chloride 40 mEq [potassium chloride ER 10 mEq tablet,extended release ja5 (4 tabs)] Route: PO; 21:36 Follow up: Response: No significant change. cf2 18:02 Drug: -Haloperidol Lactate 2 mg [haloperidol lactate 5 mg/mL injection solution (0.4 kr3 mL)] Route: IM; Site: left deltoid; 21:36 Follow up: Response: No significant change. cf2 19:09 Drug: LORazepam 0.5 mg [lorazepam 2 mg/mL injection solution (0.25 mL)] Route: IVP; kr3 Site: right hand; 21:35 Follow up: Response: No significant change. cf2 Signatures: Dispatcher [employer] EDMS Jonathon Joseph, Reg Reg lg Maximo Sanders, ELECTRICIAN SHIP ELECTRICIAN SHIP Stacey Green,RN RN kr3 Luciana CrowRN RN cf2 Tito Nation RN RN sa Anderson, Jessica RN ja5 Stacey Sanford RN kr3 The chart was reviewed and I authenticate all verbal orders and agree with the evaluation and treatment provided.Attachments: 15:34 [facility] Payment Agreement lg MTDD
[2016-06-18 22:00] VITALS: BP 140/71
[2016-06-18] MEDS ORDERED: NS 1,000 ML IV SCH (22:00)
[2016-06-18] MEDS: KCL 10MEQ IN 100ML SWI (KRUN) 10 MEQ in APPROPRIATE DILUENT 1 EA IV SCH ×2 (22:52)
[2016-06-18 22:57] LABS: ANION GAP 6 MEQ/L (8-16); BLOOD UREA NITROGEN 11 MG/DL (7-18); CALCIUM LEVEL 8.6 MG/DL (8.8-10.2); CARBON DIOXIDE LEVEL 31 MEQ/L (21-32); CHLORIDE LEVEL 110 MEQ/L (98-107); GLOMERULAR FILTRATION RATE > 60.0 (>39); GLUCOSE, FASTING 112 MG/DL (83-110); MAGNESIUM LEVEL 2.1 MG/DL (1.8-2.4); SODIUM LEVEL 147 MEQ/L (136-145)
[2016-06-18 23:33] LABS: POTASSIUM SERUM 2.6 MEQ/L (3.5-5.1)
[2016-06-19] VITALS: BP 148/65
[2016-06-19] MEDS: KCL 10MEQ IN 100ML SWI (KRUN) 10 MEQ in APPROPRIATE DILUENT 1 EA IV SCH ×4 (02:01→03:13)
[2016-06-19 04:00] VITALS: BP 154/71
[2016-06-19] MEDS: LEVOTHYROXINE 0.075 MG TAB (75 MCG) PO SCH (06:34)
[2016-06-19 07:10] VITALS: BP 148/72
[2016-06-19 07:26] LABS: BASO % 0.2 % (0.0-1.0); EOS # 0.1 K/mm3 (0.0-0.50); EOS % 1.2 % (0.0-3.0); LARGE UNSTAINED CELL # 0.1 K/mm3 (0.0-0.4); LARGE UNSTAINED CELL % 1.8 % (0.0-4.0); LYMPH % 27.4 % (24.0-44.0); MEAN CORPUSCULAR HEMOGLOBIN 29.3 pg (27.0-33.0); MEAN CORPUSCULAR HGB CONC 31.9 g/dl (32.0-36.5); MEAN CORPUSCULAR VOLUME 92.1 fl (80.0-96.0); MONO # 0.3 K/mm3 (0.0-0.8); MONO % 3.8 % (0.0-5.0); NEUTROPHILS # 4.9 K/mm3 (1.8-7.7); NEUTROPHILS % 65.7 % (36.0-66.0); PLATELET COUNT, AUTOMATED 215 k/mm3 (150-450); RED CELL DISTRIBUTION WIDTH 13.7 % (11.5-14.5); WHITE BLOOD COUNT 7.4 K/mm3 (4.0-10.0)
[2016-06-19 07:41] LABS: ANION GAP 8 MEQ/L (8-16); BLOOD UREA NITROGEN 10 MG/DL (7-18); CALCIUM LEVEL 9.1 MG/DL (8.8-10.2); CARBON DIOXIDE LEVEL 30 MEQ/L (21-32); CHLORIDE LEVEL 110 MEQ/L (98-107); CREATININE FOR GFR 0.91 MG/DL (0.55-1.02); GLOMERULAR FILTRATION RATE > 60.0 (>39); GLUCOSE, FASTING 92 MG/DL (83-110); MAGNESIUM LEVEL 2.3 MG/DL (1.8-2.4); POTASSIUM SERUM 3.1 MEQ/L (3.5-5.1); SODIUM LEVEL 148 MEQ/L (136-145)
--- NOTE | 2016-06-19 08:28 | IPNPDOC ---
Subjective General Date Seen The patient was seen on 06/19/16. Subjective Chief Complaint/HPI The patient is a 75-year-old female admitted with a reason for visit of Syncope. Events since last encounter Lethargic, questionable historian, not providing any useful information at this time. 1:1 sitter for agitation overnight. General: Denies: Chills, Fatigue, Malaise, Night Sweats, Normal Appetite, Other Symptoms, ROS Unobtainable Constitutional: Denies: Chills, Fatigue, Fever, Lethargy, Malaise, Night Sweats , Other, Weakness, Weight Loss Eyes: Denies: Conjunctivae inflammation, Eyelid inflammation, Other, Pain, Redness, Vision change ENT: Denies: Dysphagia, Ear Pain, Epistaxis, Head Aches, Other Symptoms, Post Nasal Drip, Sinus Congestion, Sore Throat Pulmonary: Denies: Cough, Dyspnea, Other Symptoms, Pleuritic Chest Pain Cardiovascular: Denies: Chest Pain, Edema, Lt Headedness, Orthopnea, Other Symptoms, Palpitations, Paroxysmal Noc. Dyspnea Gastrointestinal: Denies: Abdominal Pain, Constipation, Diarrhea, Hematochezia , Melena, Nausea, Other Symptoms, Vomiting Objective Physical Examination General Exam: Positive: No Acute Distress, Negative: Cooperative Eye Exam: Positive: Conjunctiva & lids normal ENT Exam: Positive: Atraumatic Neck Exam: Positive: Supple Chest Exam: Positive: Clear to auscultation, Normal air movement Heart Exam: Positive: Rate Normal, Regular Rhythm Telemetry: Positive: No significant arrhythmia Abdomen Exam: Positive: Normal bowel sounds, Soft, Negative: Tenderness Assessment /Plan Problems Problems: (1) Syncope Status: Acute Discussed With: Patient Problem Specific Plan: Monitor Clinically, Repeat Labs, Repeat Tests Problem Text: Unknown etiology at this time. 2D echo pending, EEG pending. Continue telemetry monitoring. Check orthostatics. (2) Dementia Status: Chronic Problem Specific Plan: Monitor Clinically Problem Text: with some agitation reported last night continue with 1:1 sitter for now haldol ordered Discussed with Gabe regarding her agitation. He states this is typical and has many episodes of agitation at home. He states theses episodes resolve on their own is she is given the opportunity to allow herself to calm down. (3) CAD (coronary artery disease) Status: Chronic Problem Text: s/p cabg as per documented history card markers negative x 3 no ecg changes (4) Hypothyroidism Status: Chronic Problem Specific Plan: Monitor Clinically Problem Text: Synthroid (5) Hyperlipidemia Status: Chronic Problem Text: Lipitor (6) CVA (cerebral vascular accident) Status: Chronic Problem Specific Plan: Monitor Clinically Problem Text: with residual right sided deficits as per history continue asa and statin therapy (7) Hypokalemia Status: Acute Problem Specific Plan: Monitor Clinically, Repeat Labs Problem Text: Replete PO. Follow up and replete as needed. Plan/VTE VTE Prophylaxis Ordered?: Yes (heparin sc) Plan Therapy: PT, OT Pt and Family Services: Home Care Diagnostics: Repeat Labs in AM, TTE, Other Diagnostics (eeg) Anticipated Discharge: Home, Home With Services, Assisted Living, Group Home Disposition Appears to be medically stable at this time, her agitation appears to be her baseline behavior as per discussions with her . Will need assessment by PFS for possible home care, although her feels he is able to manage without assistance. Anticipating discharge on Tuesday06/21/16 after PFS evaluation. VS, I&O, 24H, Robnibone Vital Signs/I&O Vital Signs Date Time Temp Pulse Resp B/P Pulse Ox O2 Delivery O2 Flow Rate FiO2 06/19/16 04:00 96.2 57 20 154/71 96 Room Air I&O- Last 24 Hours up to 6 AM 06/19/16 05:59 Intake Total 200 ml Output Total 300 ml Balance -100 ml Laboratory Data 24H LABS Laboratory Tests 2 06/18/16 14:38: White Blood Count 7.6, Red Blood Count 4.33, Hemoglobin 12.9, Hematocrit 40.0, Mean Corpuscular Volume 92.4, Mean Corpuscular Hemoglobin 29.9, Mean Corpuscular Hemoglobin Concent 32.4, Red Cell Distribution Width 13.6, Platelet Count 203, Neutrophils (%) (Auto) 74.6H, Lymphocytes (%) (Auto) 17.6L, Monocytes (%) (Auto) 4.4, Eosinophils (%) (Auto) 1.5, Basophils (%) (Auto) 0.3, Neutrophils # (Auto) 5.7, Lymphocytes # (Auto) 1.3L, Monocytes # (Auto) 0.3, Eosinophils # (Auto) 0.1, Basophils # (Auto) 0.0, Large Unclassified Cells # 0.1 , Large Unclassified Cells % 1.6 06/18/16 15:06: Urine Amorphous Sediment , Urine Amphetamine Level NEGATIVE, Urine Benzodiazepines Screen NEGATIVE, Urine Cannabinoids NEGATIVE, Urine Cocaine Metabolite NEGATIVE, Urine Opiates Screen NEGATIVE, Urine Appearance CLEAR, Urine Color YELLOW, Urine pH 6.0, Urine Specific [place] 1.013, Urine Protein NEGATIVE, Urine Glucose (UA) NEGATIVE, Urine Ketones NEGATIVE, Urine Urobilinogen 0.2, Urine Bilirubin NEGATIVE, Urine Leukocyte Esterase NEGATIVE, Urine Bacteria (Auto) NEGATIVE, Urine Barbiturates, Qualitative NEGATIVE, Urine Blood 1+H, Urine Calcium Carbonate Cryst(Auto) , Urine Calcium Oxalate Cryst ( Auto) , Urine Calcium Phosphate [place] (Auto) , Urine Cellular Casts , Urine Cystine Crystals , Urine Granular Casts (Auto) , Urine Hyaline Casts (Auto) 0, Urine Leucine Crystals , Urine Methadone Screen NEGATIVE, Urine Mucus (Auto) SMALL, Urine Nitrite NEGATIVE, Urine Oval Fat Bodies (Auto) , Urine RBC (Auto) 14H, Urine Renal Epithelial Cells , Urine Sperm (Auto) , Urine Squamous Epithelial Cells 0, Urine Transitional Epithelial Cells , Urine Trichomonas ( Auto) , Urine Tricyclic Antidepressants NEGATIVE, Urine Triple Phosphate Cryst ( Auto) , Urine Tyrosine Crystals , Urine Uric Acid Crystals (Auto) , Urine WBC ( Auto) 5H, Urine Waxy Casts (Auto) , Urine Yeast-Like Cells (Auto) 06/18/16 15:31: Prothromb Time International Ratio 1.03, Prothrombin Time 13.6 06/18/16 15:32: Acetaminophen Level < 2.0L, Aspartate Amino Transf (AST/SGOT) 26, Alanine Aminotransferase (ALT/SGPT) 23, Alkaline Phosphatase 74, Total Bilirubin 0.3, Direct Bilirubin < 0.1, Albumin 2.8L, Albumin/Globulin Ratio 0.85L, Anion Gap 5L , Calcium Level 8.8, Creatine Kinase MB 3.1, Creatine Kinase MB Relative Index 3.19, Glomerular Filtration Rate 54.1, Salicylates Level < 1.7L, Thyroid Stimulating Hormone (TSH) 2.910, Total Creatine Kinase 97, Total Protein 6.1L, Troponin I < 0.02 06/18/16 21:53: Anion Gap 6L, Blood Urea Nitrogen 11, Creatinine 0.90, Sodium Level 147H, Potassium Level 2.6*L, Chloride Level 110H, Carbon Dioxide Level 31, Calcium Level 8.6L, Total Creatine Kinase 242#H, Creatine Kinase MB 5.0H, Creatine Kinase MB Relative Index 2.06, Glomerular Filtration Rate > 60.0, Magnesium Level 2.1, Troponin I < 0.02 06/19/16 05:19: Total Creatine Kinase 258H, Creatine Kinase MB 4.8H, Creatine Kinase MB Relative Index 1.86, Troponin I < 0.02 06/19/16 07:10: Anion Gap 8, Blood Urea Nitrogen 10, Creatinine 0.91, Sodium Level 148H, Potassium Level 3.1L, Chloride Level 110H, Carbon Dioxide Level 30, Calcium Level 9.1, Glomerular Filtration Rate > 60.0, Magnesium Level 2.3, Ammonia < 10 06/19/16 07:11: White Blood Count 7.4, Red Blood Count 4.32, Hemoglobin 12.7, Hematocrit 39.8, Mean Corpuscular Volume 92.1, Mean Corpuscular Hemoglobin 29.3, Mean Corpuscular Hemoglobin Concent 31.9L, Red Cell Distribution Width 13.7, Platelet Count 215, Neutrophils (%) (Auto) 65.7, Lymphocytes (%) (Auto) 27.4, Monocytes (%) (Auto) 3.8, Eosinophils (%) (Auto) 1.2, Basophils (%) (Auto) 0.2, Neutrophils # (Auto) 4.9, Lymphocytes # (Auto) 2.0, Monocytes # (Auto) 0.3, Eosinophils # (Auto) 0.1, Basophils # (Auto) 0.0, Large Unclassified Cells # 0.1 , Large Unclassified Cells % 1.8 CBC/BMP Laboratory Tests 06/18/16 14:38 Red Blood Count 4.33, Mean Corpuscular Volume 92.4, Mean Corpuscular Hemoglobin 29.9, Mean Corpuscular Hemoglobin Concent 32.4, Red Cell Distribution Width 13.6 , Neutrophils (%) (Auto) 74.6 H, Lymphocytes (%) (Auto) 17.6 L, Monocytes (%) ( Auto) 4.4, Eosinophils (%) (Auto) 1.5, Basophils (%) (Auto) 0.3, Neutrophils # ( Auto) 5.7, Lymphocytes # (Auto) 1.3 L, Monocytes # (Auto) 0.3, Eosinophils # ( Auto) 0.1, Basophils # (Auto) 0.0 06/18/16 15:32 06/18/16 21:53 Calcium Level 8.6 L, Total Creatine Kinase 242 #H 06/19/16 07:10 Calcium Level 9.1 06/19/16 07:11 Red Blood Count 4.32, Mean Corpuscular Volume 92.1, Mean Corpuscular Hemoglobin 29.3, Mean Corpuscular Hemoglobin Concent 31.9 L, Red Cell Distribution Width 13.7, Neutrophils (%) (Auto) 65.7, Lymphocytes (%) (Auto) 27.4, Monocytes (%) ( Auto) 3.8, Eosinophils (%) (Auto) 1.2, Basophils (%) (Auto) 0.2, Neutrophils # ( Auto) 4.9, Lymphocytes # (Auto) 2.0, Monocytes # (Auto) 0.3, Eosinophils # (Auto ) 0.1, Basophils # (Auto) 0.0 Microbiology Microbiology 06/19/16 Blood Culture, Received Pending 06/19/16 Blood Culture, Received Pending 06/18/16 Urine Culture, Received Pending SANTY WESLEY MD Jun 19, 2016 08:28
[2016-06-19] MEDS ORDERED: POTASSIUM CHLORIDE 10 MEQ SR TABLET PO ONE (08:30)
[2016-06-19] MEDS: ATORVASTATIN 20 MG TAB PO SCH (09:53)
[2016-06-19] MEDS: MIRTAZAPINE 15 MG TAB PO SCH (09:53)
[2016-06-19] MEDS: ASPIRIN 81 MG ENTERIC TAB PO SCH (09:53)
[2016-06-19] MEDS: HEPARIN SOD (PORCINE) 5000 UNITS/ML VIAL SQ SCH ×2 (10:09→21:46)
[2016-06-19] MEDS ORDERED: HALOPERIDOL 5 MG/ML VIAL (J1630) IM PRN (11:15)
--- NOTE | 2016-06-19 11:56 | ECHO ---
DATE OF STUDY: 06/18/2016 REFERRING PHYSICIAN: Dr. Alber Pires INDICATION: Syncope HEIGHT: 61 inches WEIGHT: 122 kilograms MEASUREMENTS: Aortic root: 2.8 cm Left atrium: 3.4 cm Ventricular septum: 1.21 cm Posterior wall: 1.22 cm Left ventricle diastole: 4.4 cm Left ventricle systole: 3.1 cm DOPPLER MEASUREMENTS: Aortic valve velocity: 104 cm/s LVOT velocity: 119 cm/s LVOT VTI: 25.5 cm Very mitral regurgitation. Mitral E velocity: 112.0 cm/s Mitral A velocity: 118 cm/s Mitral deceleration time 141 milliseconds. Very mild tricuspid regurgitation. Estimated right ventricle systolic pressure: 46 mmHg assuming a right atrial pressure of 5 mmHg Very mild pulmonic regurgitation. MITRAL ANNULAR TISSUE DOPPLER: E prime lateral: 7.6 cm/s E prime septal: 4.3 cm/s DESCRIPTION: Rhythm was probably sinus and had an appearance of frequent PVCs. This was a moderately technically difficult echocardiogram as the patient was uncooperative and confused during the study. No pericardial effusion. This was a 2D, M-mode, color flow Doppler, and pulse wave Doppler examination and included mitral annular tissue Doppler. CONCLUSIONS: 1. Very mild concentric left ventricular hypertrophy. Normal left ventricle (LV) wall motion and wall thickening. Normal LV systolic functioning. Left ventricular ejection fraction (LVEF) 65% by visual estimate. Grade 1 LV diastolic dysfunction. 2. Mild-moderate aortic valve sclerosis. No aortic stenosis. No aortic regurgitation. 3. Mild mitral annular calcification. Very mild mitral regurgitation. 4. Moderate elevation of estimated right ventricular systolic pressure (46 mmHg). 5. No pericardial effusion. MTDD
[2016-06-19 12:00] VITALS: BP 129/85
[2016-06-19] MEDS ORDERED: LORazepam 2 MG/ML VIAL (J2060) IV STA (14:19)
[2016-06-19] MEDS: MEMANTINE 5MG TABLET (NAMENDA) PO SCH (17:01)
[2016-06-19 20:00] VITALS: BP 166/82; PULSE 88
[2016-06-19] MEDS: DONEPEZIL 5 MG TAB PO SCH (21:46)
[2016-06-20] VITALS (7 sets, daily range): BP systolic 110–136; BP diastolic 71–88; PULSE 69–95
[2016-06-20 05:34] LABS: BASO % 0.2 % (0.0-1.0); EOS # 0.1 K/mm3 (0.0-0.50); EOS % 1.2 % (0.0-3.0); LARGE UNSTAINED CELL # 0.1 K/mm3 (0.0-0.4); LARGE UNSTAINED CELL % 1.3 % (0.0-4.0); LYMPH # 1.9 K/mm3 (1.5-4.5); LYMPH % 25.6 % (24.0-44.0); MEAN CORPUSCULAR HEMOGLOBIN 29.6 pg (27.0-33.0); MEAN CORPUSCULAR VOLUME 89.7 fl (80.0-96.0); MONO # 0.3 K/mm3 (0.0-0.8); MONO % 3.9 % (0.0-5.0); NEUTROPHILS # 4.9 K/mm3 (1.8-7.7); NEUTROPHILS % 67.8 % (36.0-66.0); PLATELET COUNT, AUTOMATED 198 k/mm3 (150-450); RED CELL DISTRIBUTION WIDTH 13.7 % (11.5-14.5); WHITE BLOOD COUNT 7.3 K/mm3 (4.0-10.0)
[2016-06-20] MEDS: LEVOTHYROXINE 0.075 MG TAB (75 MCG) PO SCH (05:37)
[2016-06-20 05:38] LABS: ANION GAP 7 MEQ/L (8-16); BLOOD UREA NITROGEN 7 MG/DL (7-18); CALCIUM LEVEL 8.3 MG/DL (8.8-10.2); CARBON DIOXIDE LEVEL 30 MEQ/L (21-32); CHLORIDE LEVEL 109 MEQ/L (98-107); CREATININE FOR GFR 0.78 MG/DL (0.55-1.02); GLOMERULAR FILTRATION RATE > 60.0 (>39); GLUCOSE, FASTING 96 MG/DL (83-110); MAGNESIUM LEVEL 2.1 MG/DL (1.8-2.4); POTASSIUM SERUM 2.9 MEQ/L (3.5-5.1); SODIUM LEVEL 146 MEQ/L (136-145)
[2016-06-20] MEDS ORDERED: POTASSIUM CHLORIDE 10 MEQ SR TABLET PO SCH (06:45)
[2016-06-20] MEDS ORDERED: POTASSIUM CHLORIDE 10 MEQ SR TABLET PO ONE (07:00)
--- NOTE | 2016-06-20 08:00 | ECGEPIP ---
Stationary ECG Study [facility] Test Date: 2016-06-20 Pat Name: KELVIN GUAN Department: Room: [place] [address] Gender: F Construction Safety Consultant: NICOLE : 1940 Requested By: SANTY Youssef Order Number: [id number] Reading MD: Charmaine Ramesh Measurements Intervals [place] Rate: 76 P: 51 AR: 148 QRS: -26 QRSD: 91 T: 72 QT: 391 QTc: 442 Interpretive Statements SINUS RHYTHM LEFT AXIS DEVIATION [QRS AXIS < -20] ST & T-WAVE ABNORMALITY SEPTAL LEADS POSSIBLE ISCHEMIUA POSSIBLE Right ventricular hypertrophy SIMILAR TO 06/18/16 Electronically Signed On 06-20-2016 8:00:09 EST by Charmaine Ramesh
[2016-06-20] MEDS: ATORVASTATIN 20 MG TAB PO SCH (08:21)
[2016-06-20] MEDS: MEMANTINE 5MG TABLET (NAMENDA) PO SCH (08:21)
[2016-06-20] MEDS: ASPIRIN 81 MG ENTERIC TAB PO SCH (08:21)
[2016-06-20] MEDS: MIRTAZAPINE 15 MG TAB PO SCH (08:22)
[2016-06-20] MEDS: HEPARIN SOD (PORCINE) 5000 UNITS/ML VIAL SQ SCH ×2 (08:22→21:03)
--- NOTE | 2016-06-20 08:51 | IPNPDOC ---
Subjective General Date Seen The patient was seen on 06/20/16. Subjective Chief Complaint/HPI The patient is a 75-year-old female admitted with a reason for visit of Syncope. Events since last encounter Quite agitated yesterday. Today during physical examination was calm and cooperative. General: Denies: Chills, Fatigue, Malaise, Night Sweats, Normal Appetite, Other Symptoms, ROS Unobtainable Constitutional: Denies: Chills, Fatigue, Fever, Lethargy, Malaise, Night Sweats , Other, Weakness, Weight Loss Eyes: Denies: Conjunctivae inflammation, Eyelid inflammation, Other, Pain, Redness, Vision change ENT: Denies: Dysphagia, Ear Pain, Epistaxis, Head Aches, Other Symptoms, Post Nasal Drip, Sinus Congestion, Sore Throat Skin: Denies: Breakdown, Bruising, Dry, Itching, Jaundice, Lesions, Nail Changes, Other, Rash Pulmonary: Denies: Cough, Dyspnea, Other Symptoms, Pleuritic Chest Pain Cardiovascular: Denies: Chest Pain, Edema, Lt Headedness, Orthopnea, Other Symptoms, Palpitations, Paroxysmal Noc. Dyspnea Gastrointestinal: Denies: Abdominal Pain, Constipation, Diarrhea, Hematochezia , Melena, Nausea, Other Symptoms, Vomiting Genitourinary: Denies: Dysuria, Frequency, Hematuria, Incontinence, Other Symptoms, Retention Objective Physical Examination General Exam: Positive: Alert, Cooperative, No Acute Distress, Other (elderly, frail) Eye Exam: Positive: Conjunctiva & lids normal, EOMI, PERRLA ENT Exam: Positive: Atraumatic, Mucous membr. moist/pink Neck Exam: Positive: Supple Chest Exam: Positive: Clear to auscultation, Normal air movement Heart Exam: Positive: Rate Normal, Regular Rhythm Telemetry: Positive: No significant arrhythmia Abdomen Exam: Positive: Normal bowel sounds, Soft, Negative: Tenderness Psych Exam: Negative: Oriented x 3 (oriented only to person) Assessment /Plan Problems Problems: (1) Syncope Status: Acute Discussed With: Patient Problem Specific Plan: Monitor Clinically, Repeat Labs, Repeat Tests Problem Text: 2D echo with no cardiac etiology for syncopal episode. EEG pending. Continue telemetry monitoring, significant ectopy noted. Check orthostatics. (2) Dementia Status: Chronic Problem Specific Plan: Monitor Clinically Problem Text: Agitation seems to have resolved for now. continue with 1:1 sitter for now sindyl ordered, started namenda/donepezil Discussed with Gabe regarding her agitation. He states this is typical and has many episodes of agitation at home. He states theses episodes resolve on their own is she is given the opportunity to allow herself to calm down. (3) CAD (coronary artery disease) Status: Chronic Problem Text: s/p cabg as per documented history card markers negative x 3 no ecg changes (4) Hypothyroidism Status: Chronic Problem Specific Plan: Monitor Clinically Problem Text: Synthroid (5) Hyperlipidemia Status: Chronic Problem Text: Lipitor (6) CVA (cerebral vascular accident) Status: Chronic Problem Specific Plan: Monitor Clinically Problem Text: with residual right sided deficits as per history continue asa and statin therapy (7) Hypokalemia Status: Acute Response to Treatment: Progressing Problem Specific Plan: Monitor Clinically, Repeat Labs Problem Text: Hypokalemic again this morning. Replete PO. Follow up and replete as needed. (8) UTI (urinary tract infection) Status: Acute Discussed With: Patient Problem Specific Plan: Monitor Clinically, Repeat Labs Problem Text: Cultures pending. IV Ceftriaxone for now. Plan/VTE VTE Prophylaxis Ordered?: Yes (heparin sc) Plan Therapy: PT, OT Pt and Family Services: Home Care Diagnostics: Repeat Labs in AM, Other Diagnostics (eeg) Anticipated Discharge: Home, Home With Services, Assisted Living, Skilled Nursing VS, I&O[facility] Signs/[facility]&O Vital Signs Date Time Temp Pulse Resp B/P Pulse Ox O2 Delivery O2 Flow Rate FiO2 06/20/16 04:00 69 06/20/16 04:00 98.8 18 126/71 92 Room Air I&O- Last 24 Hours up to 6 AM 06/20/16 06:00 Intake Total 1050 ml Output Total 375 ml Balance 675 ml Laboratory Data 24H LABS Laboratory Tests 2 06/20/16 05:15: Anion Gap 7L, White Blood Count 7.3, Red Blood Count 4.25, Hemoglobin 12.6, Hematocrit 38.1, Mean Corpuscular Volume 89.7, Mean Corpuscular Hemoglobin 29.6 , Mean Corpuscular Hemoglobin Concent 33.0, Red Cell Distribution Width 13.7, Platelet Count 198, Neutrophils (%) (Auto) 67.8H, Lymphocytes (%) (Auto) 25.6, Monocytes (%) (Auto) 3.9, Eosinophils (%) (Auto) 1.2, Basophils (%) (Auto) 0.2, Neutrophils # (Auto) 4.9, Lymphocytes # (Auto) 1.9, Monocytes # (Auto) 0.3, Eosinophils # (Auto) 0.1, Basophils # (Auto) 0.0, Blood Urea Nitrogen 7, Creatinine 0.78, Sodium Level 146H, Potassium Level 2.9*L, Chloride Level 109H, Carbon Dioxide Level 30, Calcium Level 8.3L, Glomerular Filtration Rate > 60.0, Large Unclassified Cells # 0.1, Large Unclassified Cells % 1.3, Magnesium Level 2.1 06/20/16 07:37: Urine Amorphous Sediment SMALLH, Urine Appearance CLOUDYH, Urine Color YELLOW, Urine pH 7.0, Urine Specific [place] 1.010, Urine Protein NEGATIVE, Urine Glucose (UA) NEGATIVE, Urine Ketones NEGATIVE, Urine Urobilinogen 0.2, Urine Bilirubin NEGATIVE, Urine Leukocyte Esterase 2+H, Urine Bacteria (Auto) 2+H, Urine Blood NEGATIVE, Urine Calcium Carbonate Cryst(Auto) , Urine Calcium Oxalate Cryst (Auto) , Urine Calcium Phosphate Anna (Auto) , Urine Cellular Casts , Urine Cystine Crystals , Urine Granular Casts (Auto) , Urine Hyaline Casts (Auto) 0, Urine Leucine Crystals , Urine Mucus (Auto) SMALL, Urine Nitrite POSITIVE, Urine Oval Fat Bodies (Auto) , Urine RBC (Auto) 4H, Urine Renal Epithelial Cells , Urine Sperm (Auto) , Urine Squamous Epithelial Cells 0 , Urine Transitional Epithelial Cells , Urine Trichomonas (Auto) , Urine Triple Phosphate Cryst (Auto) , Urine Tyrosine Crystals , Urine Uric Acid Crystals ( Auto) , Urine WBC (Auto) 133H, Urine Waxy Casts (Auto) , Urine Yeast-Like Cells (Auto) CBC/BMP Laboratory Tests 06/20/16 05:15 Calcium Level 8.3 L, Red Blood Count 4.25, Mean Corpuscular Volume 89.7, Mean Corpuscular Hemoglobin 29.6, Mean Corpuscular Hemoglobin Concent 33.0, Red Cell Distribution Width 13.7, Neutrophils (%) (Auto) 67.8 H, Lymphocytes (%) (Auto) 25.6, Monocytes (%) (Auto) 3.9, Eosinophils (%) (Auto) 1.2, Basophils (%) (Auto ) 0.2, Neutrophils # (Auto) 4.9, Lymphocytes # (Auto) 1.9, Monocytes # (Auto) 0.3, Eosinophils # (Auto) 0.1, Basophils # (Auto) 0.0 Microbiology Microbiology 06/19/16 Blood Culture - Preliminary, Resulted No growth after 24 hours . All specim... 06/19/16 Blood Culture - Preliminary, Resulted No growth after 24 hours . All specim... 06/20/16 Urine Culture, Received Pending 06/18/16 Urine Culture - Final, Complete SANTY WESLEY MD Jun 20, 2016 08:51
[2016-06-20] MEDS: cefTRIAXone SOD 1 GM in D5W MINI-BAG PLUS 50 ML IV SCH (09:00)
[2016-06-20 15:50] LABS: ANION GAP 11 MEQ/L (8-16); BLOOD UREA NITROGEN 10 MG/DL (7-18); CALCIUM LEVEL 8.9 MG/DL (8.8-10.2); CARBON DIOXIDE LEVEL 28 MEQ/L (21-32); CHLORIDE LEVEL 109 MEQ/L (98-107); GLOMERULAR FILTRATION RATE > 60.0 (>39); GLUCOSE, FASTING 99 MG/DL (83-110); POTASSIUM SERUM 3.3 MEQ/L (3.5-5.1); SODIUM LEVEL 148 MEQ/L (136-145)
[2016-06-20] MEDS ORDERED: POTASSIUM CHLORIDE 10% LIQ 20 MEQ/15 ML UDC PO ONE (19:15)
[2016-06-20] MEDS: DONEPEZIL 5 MG TAB PO SCH (21:03)
--- NOTE | 2016-06-20 22:50 | EDDOCDS ---
Physician Documentation [facility] Name: Angela Patel Age: 75 yrs Sex: Female : 1940 Arrival Date: 06/18/2016 Time: 13:56 Bed [facility] Private MD: Kushal Johnson MD Disposition: 06/18/16 16:37 Hospitalization ordered by Alber Pires for Inpatient Admission. Preliminary diagnosis are Hypokalemia, Altered mental status, unspecified. - Bed requested for PCU. - Status is Inpatient Admission. cf2 - Condition is Stable. - Problem is an ongoing problem. - Symptoms are unchanged. Historical: - Allergies: no known allergies; - Home Meds: 1. aspirin 81 mg Oral chew 1 tab once daily (Last dose: 06/18/2016) 2. mirtazapine 30 mg Oral TbDL 1 tab once daily (Last dose: 06/18/2016) 3. levothyroxine 75 mcg Oral cap 1 cap once daily (Last dose: 06/18/2016) 4. donepezil 5 mg oral TbDL 1 tab once daily (Last dose: 06/18/2016) 5. atorvastatin 20 mg oral tab 1 tab once daily (Last dose: 06/18/2016) - PMHx: CVA; Dementia; Hypercholesterolemia; Hypothyroidism; Alzheimers; - PSHx: CABG; - Social history: Smoking status: Patient uses tobacco products, current every day smoker. No barriers to communication noted, The patient speaks fluent Persian. - Family history: Not pertinent. - : The pt / caregiver states he / she is not on anticoagulants. Home medication list is obtained from family members, pill bottles. - Exposure Risk Screening:: None identified. Vital Signs: 06/18 14:13 BP 123 / 87 (auto/); ja5 14:13 Pulse 60 MON; ja5 14:13 BP 123 / 87 (auto/); ja5 14:13 Pulse 60 MON; ja5 14:15 BP 123 / 87; Pulse 68; Resp 18; Temp 98.2(O); Pulse Ox 98% on R/A; Weight 55.34 kg / dem1 122 lbs; Height 5 ft. 1 in. (154.94 cm); Pain 0/10; 14:47 Pulse 70 MON; Pulse Ox 97% ; ja5 15:01 BP 123 / 64 (auto/); ja5 15:11 BP 159 / 65 (auto/); ja5 16:43 BP 141 / 65 (auto/); kr3 16:46 Pulse 64 MON; Pulse Ox 92% ; kr3 18:43 BP 158 / 69 (auto/); kr3 18:44 Pulse 66 MON; Resp 16; Temp 98(TE); Pulse Ox 97% ; kr3 19:30 BP 121 / 76; Pulse 60; Resp 18; Pulse Ox 94% on R/A; cf2 21:46 BP 112 / 55; Pulse 54; Resp 18; Temp 98.0; Pulse Ox 97% on R/A; Pain 0/10; cf2 14:15 Body Mass Index 23.05 (55.34 kg, 154.94 cm) dem1 MDM: 14:13 [employer]/Pulse Ox/q 15 min VS ordered. ke 14:13 Accucheck ordered. ke 14:13 IV Saline Lock ordered. ke 14:13 Oxygen at 4L/Min NC or Home dosage ordered. ke 14:13 Rhythm Strip to chart ordered. ke 14:13 Straight cath ordered. ke 14:15 Acetaminophen Level Ordered. EDMS 14:15 CBC with Diff Ordered. EDMS 14:15 Cardiac Injury Profile Ordered. EDMS 14:15 Drug Eval Toxicology ED Only Ordered. EDMS 14:15 Liver Profile Ordered. EDMS 14:15 MED Profile Ordered. EDMS 14:15 Salicylate Level Ordered. EDMS 14:15 Thyroid Stimulating Hormone Ordered. EDMS 14:15 Troponin Ordered. EDMS 14:15 Urinalysis Ordered. EDMS 14:15 PT/INR Ordered. EDMS 14:15 Urine Culture Ordered. EDMS 14:16 Chest, 1 View Ordered. EDMS 14:16 CT Head Without Contrast Ordered. EDMS 14:16 ECG WITH READING ER PHYS+CARDIAG ordered. EDMS 14:21 BED REQUEST+ADM ordered. EDMS 15:09 Financial registration complete. lg 15:34 [facility] [place] was scanned into [employer] and attached to record. lg 15:38 NS 0.9% 1000 ml IV at 250 mL/hr continuous ordered. ke 15:44 LORazepam 0.5 mg IVP once ordered. ke 16:14 Potassium Chloride Extended Release Tablet 40 mEq PO once ordered. ke 16:14 Potassium Chloride in 100cc sterile water 10 mEq IV at 100 mL/hr once over 1 hrs ke ordered. 16:33 Acetaminophen Level Reviewed. ke 16:33 CBC with Diff Reviewed. ke 16:33 Liver Profile Reviewed. ke 16:33 MED Profile Reviewed. ke 16:33 Salicylate Level Reviewed. ke 16:33 Urinalysis Reviewed. ke 16:33 Cardiac Injury Profile Reviewed. ke 16:33 Drug Eval Toxicology ED Only Reviewed. ke 16:33 Thyroid Stimulating Hormone Reviewed. ke 16:33 Troponin Reviewed. ke 16:33 PT/INR Reviewed. ke 16:33 CT Head Without Contrast Reviewed. ke 16:33 Chest, 1 View Reviewed. ke 16:56 SOFT+DIET ordered. EDMS 17:40 Admission / Observation Status ordered. EDMS 17:41 ECHOCARD,DOPPLER/COLOR FLOW ordered. EDMS 17:41 2 GRAM SODIUM DIET ordered. EDMS 17:41 CARDIAC INJURY PROFILE Ordered. EDMS 17:41 TROPONIN Ordered. EDMS 17:41 MRI Brain without Contrast Ordered. EDMS 17:42 PHYSICAL THERAPY EVAL & TREAT ordered. EDMS 17:44 BASIC METABOLIC PROFILE Ordered. EDMS 17:44 MAGNESIUM LEVEL Ordered. EDMS 18:09 -Haloperidol Lactate 2 mg IM once ordered. kr3 19:06 LORazepam 0.5 mg IVP once ordered. ke 19:32 CARDIAC INJURY PROFILE Ordered. EDMS 19:33 TROPONIN Ordered. EDMS 06/19 10:40 T-Sheet-- Draft Copy was scanned into [employer] and attached to record. gb 17:02 Trend VS was scanned into [employer] and attached to record. gb 06/20 18:22 PCR was scanned into [employer] and attached to record. kf3 Administered Medications: Discontinued: NS 0.9% 1000 ml IV at 250 mL/hr continuous Discontinued: Potassium Chloride in 100cc sterile water 10 mEq IV at 100 mL/hr once over 1 hrs 06/18 15:40 Drug: NS 0.9% 1000 ml [sodium chloride 0.9 % intravenous solution] Route: IV; Rate: 250 kr3 mL/hr; Site: left hand; 21:36 Follow up: Response: No significant change. cf2 15:53 Drug: LORazepam 0.5 mg [lorazepam 2 mg/mL injection solution (0.25 mL)] Route: IVP; ja5 Site: left hand; 21:36 Follow up: Response: No significant change. cf2 16:48 Drug: Potassium Chloride in 100cc sterile water 10 mEq [potassium chloride 10 mEq/100 ja5 mL intravenous piggyback] {Co-Signature: kr3 (Stacey Sanford RN).} Route: IV; Rate: 100 mL/hr; Infused Over: 1 hrs; Site: right antecubital; 16:53 Drug: Potassium Chloride 40 mEq [potassium chloride ER 10 mEq tablet,extended release ja5 (4 tabs)] Route: PO; 21:36 Follow up: Response: No significant change. cf2 18:02 Drug: -Haloperidol Lactate 2 mg [haloperidol lactate 5 mg/mL injection solution (0.4 kr3 mL)] Route: IM; Site: left deltoid; 21:36 Follow up: Response: No significant change. cf2 19:09 Drug: LORazepam 0.5 mg [lorazepam 2 mg/mL injection solution (0.25 mL)] Route: IVP; kr3 Site: right hand; 21:35 Follow up: Response: No significant change. cf2 Signatures: Dispatcher [employer] EDMS Sonia Shipley, Reg Reg gb Jonathon Joseph, Reg Reg lg Maximo Sanders, LAND LAW EXAMINER LAND LAW EXAMINER Stacey Green,RN RN kr3 Drake Womack, Reg Reg kf3 Luciana CrowRN RN cf2 Tito Nation, Love Sun RN, sa, RN ja5 Stacey Sanford RN kr3 The chart was reviewed and I authenticate all verbal orders and agree with the evaluation and treatment provided.Attachments: 15:34 [facility] Payment Agreement lg 06/19 10:40 T-Sheet-- Draft Copy gb Chart Complete MTDD
--- NOTE | 2016-06-20 22:50 | EDDOCDS ---
Physician Documentation [facility] Name: Angela Patel Age: 75 yrs Sex: Female : 1940 Arrival Date: 06/18/2016 Time: 13:56 Bed [facility] Private MD: Kushal Johnson MD Disposition: 06/18/16 16:37 Hospitalization ordered by Alber Pires for Inpatient Admission. Preliminary diagnosis are Hypokalemia, Altered mental status, unspecified. - Bed requested for PCU. - Status is Inpatient Admission. cf2 - Condition is Stable. - Problem is an ongoing problem. - Symptoms are unchanged. Historical: - Allergies: no known allergies; - Home Meds: 1. aspirin 81 mg Oral chew 1 tab once daily (Last dose: 06/18/2016) 2. mirtazapine 30 mg Oral TbDL 1 tab once daily (Last dose: 06/18/2016) 3. levothyroxine 75 mcg Oral cap 1 cap once daily (Last dose: 06/18/2016) 4. donepezil 5 mg oral TbDL 1 tab once daily (Last dose: 06/18/2016) 5. atorvastatin 20 mg oral tab 1 tab once daily (Last dose: 06/18/2016) - PMHx: CVA; Dementia; Hypercholesterolemia; Hypothyroidism; Alzheimers; - PSHx: CABG; - Social history: Smoking status: Patient uses tobacco products, current every day smoker. No barriers to communication noted, The patient speaks fluent Tajik. - Family history: Not pertinent. - : The pt / caregiver states he / she is not on anticoagulants. Home medication list is obtained from family members, pill bottles. - Exposure Risk Screening:: None identified. Vital Signs: 06/18 14:13 BP 123 / 87 (auto/); ja5 14:13 Pulse 60 MON; ja5 14:13 BP 123 / 87 (auto/); ja5 14:13 Pulse 60 MON; ja5 14:15 BP 123 / 87; Pulse 68; Resp 18; Temp 98.2(O); Pulse Ox 98% on R/A; Weight 55.34 kg / dem1 122 lbs; Height 5 ft. 1 in. (154.94 cm); Pain 0/10; 14:47 Pulse 70 MON; Pulse Ox 97% ; ja5 15:01 BP 123 / 64 (auto/); ja5 15:11 BP 159 / 65 (auto/); ja5 16:43 BP 141 / 65 (auto/); kr3 16:46 Pulse 64 MON; Pulse Ox 92% ; kr3 18:43 BP 158 / 69 (auto/); kr3 18:44 Pulse 66 MON; Resp 16; Temp 98(TE); Pulse Ox 97% ; kr3 19:30 BP 121 / 76; Pulse 60; Resp 18; Pulse Ox 94% on R/A; cf2 21:46 BP 112 / 55; Pulse 54; Resp 18; Temp 98.0; Pulse Ox 97% on R/A; Pain 0/10; cf2 14:15 Body Mass Index 23.05 (55.34 kg, 154.94 cm) dem1 MDM: 14:13 Telephone Service Adviser/Pulse Ox/q 15 min VS ordered. ke 14:13 Accucheck ordered. ke 14:13 IV Saline Lock ordered. ke 14:13 Oxygen at 4L/Min NC or Home dosage ordered. ke 14:13 Rhythm Strip to chart ordered. ke 14:13 Straight cath ordered. ke 14:15 Acetaminophen Level Ordered. EDMS 14:15 CBC with Diff Ordered. EDMS 14:15 Cardiac Injury Profile Ordered. EDMS 14:15 Drug Eval Toxicology ED Only Ordered. EDMS 14:15 Liver Profile Ordered. EDMS 14:15 MED Profile Ordered. EDMS 14:15 Salicylate Level Ordered. EDMS 14:15 Thyroid Stimulating Hormone Ordered. EDMS 14:15 Troponin Ordered. EDMS 14:15 Urinalysis Ordered. EDMS 14:15 PT/INR Ordered. EDMS 14:15 Urine Culture Ordered. EDMS 14:16 Chest, 1 View Ordered. EDMS 14:16 CT Head Without Contrast Ordered. EDMS 14:16 ECG WITH READING ER PHYS+CARDIAG ordered. EDMS 14:21 BED REQUEST+ADM ordered. EDMS 15:09 Financial registration complete. lg 15:34 [facility] [place] Agreement was scanned into [employer] and attached to record. lg 15:38 NS 0.9% 1000 ml IV at 250 mL/hr continuous ordered. ke 15:44 LORazepam 0.5 mg IVP once ordered. ke 16:14 Potassium Chloride Extended Release Tablet 40 mEq PO once ordered. ke 16:14 Potassium Chloride in 100cc sterile water 10 mEq IV at 100 mL/hr once over 1 hrs ke ordered. 16:33 Acetaminophen Level Reviewed. ke 16:33 CBC with Diff Reviewed. ke 16:33 Liver Profile Reviewed. ke 16:33 MED Profile Reviewed. ke 16:33 Salicylate Level Reviewed. ke 16:33 Urinalysis Reviewed. ke 16:33 Cardiac Injury Profile Reviewed. ke 16:33 Drug Eval Toxicology ED Only Reviewed. ke 16:33 Thyroid Stimulating Hormone Reviewed. ke 16:33 Troponin Reviewed. ke 16:33 PT/INR Reviewed. ke 16:33 CT Head Without Contrast Reviewed. ke 16:33 Chest, 1 View Reviewed. ke 16:56 SOFT+DIET ordered. EDMS 17:40 Admission / Observation Status ordered. EDMS 17:41 ECHOCARD,DOPPLER/COLOR FLOW ordered. EDMS 17:41 2 GRAM SODIUM DIET ordered. EDMS 17:41 CARDIAC INJURY PROFILE Ordered. EDMS 17:41 TROPONIN Ordered. EDMS 17:41 MRI Brain without Contrast Ordered. EDMS 17:42 PHYSICAL THERAPY EVAL & TREAT ordered. EDMS 17:44 BASIC METABOLIC PROFILE Ordered. EDMS 17:44 MAGNESIUM LEVEL Ordered. EDMS 18:09 -Haloperidol Lactate 2 mg IM once ordered. kr3 19:06 LORazepam 0.5 mg IVP once ordered. ke 19:32 CARDIAC INJURY PROFILE Ordered. EDMS 19:33 TROPONIN Ordered. EDMS 06/19 10:40 T-Sheet-- Draft Copy was scanned into [employer] and attached to record. gb 17:02 Trend VS was scanned into [employer] and attached to record. gb 06/20 18:22 PCR was scanned into [employer] and attached to record. kf3 Administered Medications: Discontinued: NS 0.9% 1000 ml IV at 250 mL/hr continuous Discontinued: Potassium Chloride in 100cc sterile water 10 mEq IV at 100 mL/hr once over 1 hrs 06/18 15:40 Drug: NS 0.9% 1000 ml [sodium chloride 0.9 % intravenous solution] Route: IV; Rate: 250 kr3 mL/hr; Site: left hand; 21:36 Follow up: Response: No significant change. cf2 15:53 Drug: LORazepam 0.5 mg [lorazepam 2 mg/mL injection solution (0.25 mL)] Route: IVP; ja5 Site: left hand; 21:36 Follow up: Response: No significant change. cf2 16:48 Drug: Potassium Chloride in 100cc sterile water 10 mEq [potassium chloride 10 mEq/100 ja5 mL intravenous piggyback] {Co-Signature: kr3 (Stacey Sanford RN).} Route: IV; Rate: 100 mL/hr; Infused Over: 1 hrs; Site: right antecubital; 16:53 Drug: Potassium Chloride 40 mEq [potassium chloride ER 10 mEq tablet,extended release ja5 (4 tabs)] Route: PO; 21:36 Follow up: Response: No significant change. cf2 18:02 Drug: -Haloperidol Lactate 2 mg [haloperidol lactate 5 mg/mL injection solution (0.4 kr3 mL)] Route: IM; Site: left deltoid; 21:36 Follow up: Response: No significant change. cf2 19:09 Drug: LORazepam 0.5 mg [lorazepam 2 mg/mL injection solution (0.25 mL)] Route: IVP; kr3 Site: right hand; 21:35 Follow up: Response: No significant change. cf2 Signatures: Dispatcher [employer] EDMS Sonia Shipley, Reg Reg gb Jonathon Joseph, Reg Reg lg Maximo Sanders, SEISMIC SURVEY ASSISTANT SEISMIC SURVEY ASSISTANT Stacey Green,RN RN kr3 Drake Womack, Reg Reg kf3 Luciana CrowRN RN cf2 Tito Nation, Love Sun RN, sa, RN ja5 Stacey Sanford RN kr3 The chart was reviewed and I authenticate all verbal orders and agree with the evaluation and treatment provided.Attachments: 15:34 [facility] Payment Agreement lg 06/19 10:40 T-Sheet-- Draft Copy gb Chart Complete MTDD
--- NOTE | 2016-06-20 22:50 | EDDOCDS ---
Nurse's Notes [facility] Name: Angela Patel Age: 75 yrs Sex: Female : 1940 Arrival Date: 06/18/2016 Time: 13:56 Bed MRI Private MD: Kushal Johnson MD Diagnosis: Hypokalemia;Altered mental status, unspecified Presentation: 06/18 13:59 Presenting complaint: EMS states: sitting with and had 1 to 2 minute syncopal kr3 episode. Suicide/Homicide risk assessment- the patient denies having any suicidal and/or homicidal ideations and does not present with any other emotional, behavioral or mental health complaints. Status: Patient is not a customer service receptionist or dependent. Transition of care: patient was not received from another setting of care. 13:59 Method Of Arrival: Ambulance kr3 13:59 Acuity: GEENA Level 3 kr3 14:12 Adult Sepsis Screening: The patient does not have new or worsening altered mentation. kr3 Patient's respiratory rate is less than 22. Patient has a qSOFA score of 0- Negative Sepsis Screen. Care prior to arrival: Glucose check. 115. Triage Assessment: 14:12 General: Appears in no apparent distress, comfortable, Behavior is appropriate for age. kr3 General: Appears unkempt. Pain: Denies pain. The patient is triaged at the bedside. See Assessment in Nurses Notes section of ED record. Neurological: Level of Consciousness is awake, confused, Moves all extremities. Facial symmetry appears normal. Respiratory: Respiratory effort is even, unlabored. GI: other incontinent of stool. Derm: Skin is normal. Historical: - Allergies: no known allergies; - Home Meds: 1. aspirin 81 mg Oral chew 1 tab once daily (Last dose: 06/18/2016) 2. mirtazapine 30 mg Oral TbDL 1 tab once daily (Last dose: 06/18/2016) 3. levothyroxine 75 mcg Oral cap 1 cap once daily (Last dose: 06/18/2016) 4. donepezil 5 mg oral TbDL 1 tab once daily (Last dose: 06/18/2016) 5. atorvastatin 20 mg oral tab 1 tab once daily (Last dose: 06/18/2016) - PMHx: CVA; Dementia; Hypercholesterolemia; Hypothyroidism; Alzheimers; - PSHx: CABG; - Social history: Smoking status: Patient uses tobacco products, current every day smoker. No barriers to communication noted, The patient speaks fluent Moldovan. - Family history: Not pertinent. - : The pt / caregiver states he / she is not on anticoagulants. Home medication list is obtained from family members, pill bottles. - Exposure Risk Screening:: None identified. Screenin:15 Screening information is obtained from family members. Fall risk: No risks identified. kr3 Assistance ADL's: Requires assistance with meal preparation, this assistance is provided by family members, bathing, assistance is provided by family members, dressing, assistance is provided by family members, toileting, assistance is provided by family members, housework, assistance is provided by family members, medication administration, assistance is provided by family members. Abuse/DV Screen: The patient / caregiver reports he/she is: pt cannot be assessed for living situation at this time. Nutritional screening: No deficits noted. Advance Directives: Currently, there is no health care proxy. There is no Power of Rn Urology. home support is adequate. Assessment: 14:16 Reassessment: Patient appears in no apparent distress at this time. Pain: Denies pain. kr3 Neurological: Level of Consciousness is awake, alert, Oriented to person, per normal mentation . 15:45 General: Patient is in stretcher with at bedside. Respirations are even and ja5 unlabored, color is pink. She is having a hard time sitting still and her agitation is increasing. Provider has been notified.. 16:40 General: Patient became restless and pulled her IV out of left hand. Catheter in tact, ja5 no swelling or bleeding noted.. 17:05 General: Patient resting in stretcher with at bedside, respirations are even ja5 and unlabored, color is pink, SR on threat monitoring analyst, patient has no complaints of pain. Food tray has been ordered. at bedside, side rails up, bed in low position.. 17:48 General: Patient confused and tried to get out of bed and leave, she pulled the IV in ja5 her right AC out. Bleeding controlled, no swelling, catheter in tact. . 18:56 General: Patient is very restless and confused, laying in stretcher, ELECTROTYPE FINISHER at bedside ja5 because had to go home. New IV started to right wrist, patient tolerated well Dr. Pires aware that the MRI was not done due to patient condition.. 20:28 Reassessment: Patient resting at present time. Patient is currently in bed and asleep. cf2 Will continue to monitor . Adult Sepsis Screening: The patient does not have new or worsening altered mentation. Patient's respiratory rate is less than 22. Systolic blood pressure is greater than 100. Patient has a qSOFA score of 0- Negative Sepsis Screen. EENT: No deficits noted. Cardiovascular: No deficits noted. Respiratory: No deficits noted. GI: No deficits noted. : No deficits noted. Derm: No deficits noted. Musculoskeletal: No deficits noted. Injury Description: No known injury. Vital Signs: 14:13 BP 123 / 87 (auto/); ja5 14:13 Pulse 60 MON; ja5 14:13 BP 123 / 87 (auto/); ja5 14:13 Pulse 60 MON; ja5 14:15 BP 123 / 87; Pulse 68; Resp 18; Temp 98.2(O); Pulse Ox 98% on R/A; Weight 55.34 kg; dem1 Height 5 ft. 1 in. (154.94 cm); Pain 0/10; 14:47 Pulse 70 MON; Pulse Ox 97% ; ja5 15:01 BP 123 / 64 (auto/); ja5 15:11 BP 159 / 65 (auto/); ja5 16:43 BP 141 / 65 (auto/); kr3 16:46 Pulse 64 MON; Pulse Ox 92% ; kr3 18:43 BP 158 / 69 (auto/); kr3 18:44 Pulse 66 MON; Resp 16; Temp 98(TE); Pulse Ox 97% ; kr3 19:30 BP 121 / 76; Pulse 60; Resp 18; Pulse Ox 94% on R/A; cf2 21:46 BP 112 / 55; Pulse 54; Resp 18; Temp 98.0; Pulse Ox 97% on R/A; Pain 0/10; cf2 14:15 Body Mass Index 23.05 (55.34 kg, 154.94 cm) [facility] Vitals: 14:12 Log In Time N/A - ambulance arrival. kr3 ED Course: 13:59 Patient visited by Den Addison PCA. jrd 13:59 Stacey Sanford,[place] is Primary Nurse. jrd 13:59 Love Mcneill,RN is Primary Nurse. jrd 13:59 Kushal Johnson is Private Physician. jrd 13:59 Patient moved to Waiting jrd 13:59 Patient moved to 8 jrd 14:00 Triage Initiated kr3 14:02 [facility] ke 14:02 Patient visited by Maximo Sanders FNP. ke 14:02 Patient visited by Maximo Sanders FNP. ke 14:15 The patient / caregiver is instructed regarding the plan of care and ED course. kr3 Accompanied by Family Member, Patient has correct armband on for positive identification. Placed in gown. Bed in low position. Call light in reach. Side rails up X2. library monitor on. Pulse ox on. NIBP on. Cleaned of incontinence. 14:22 EKG done. (by ED staff). Reviewed by Maximo DURHAM. dem1 14:24 Patient visited by Shahida Grewal. dem1 14:40 Maintain field IV. Dressing intact. Site clean & dry. Gauge & site: 20g Left hand. ja5 Flushed left hand. 14:59 Patient visited by Maximo Sanders FNP. ke 15:08 Urinalysis Sent. kr3 15:08 Urine Culture Sent. kr3 15:09 Drug Eval Toxicology ED Only Sent. ld5 15:29 Patient visited by Maximo Sanders FNP. ke 15:34 [facility] Payment Agreement was scanned into [employer] and attached to record. lg 15:45 Patient visited by Love Mcneill RN. ja5 15:52 CT Head Without Contrast Returned. EDMS 15:52 Chest, 1 View Returned. EDMS 16:07 Patient visited by Maximo Sanders FNP. ke 16:14 Notified nurse practitioner of potassium of 2.5. kr3 16:32 Patient visited by Maximo Sanders FNP. ke 16:37 Alber Pires is Hospitalizing Provider. ke 16:37 Patient visited by Rupa Fontana PCA. rs6 16:54 Inserted peripheral IV: in right antecubital area. ja5 18:10 Patient moved to MRI kr3 18:55 Inserted saline lock: 20 gauge in right. ja5 19:09 Primary Nurse role handed off by Stacey Sanford,[place] cf2 19:09 Luciana Crow,[place] is Primary Nurse. cf2 19:09 Patient visited by Luciana Crow RN. cf2 20:28 No procedures done that require assistance. cf2 20:30 Patient visited by Luciana Crow,[place]. cf2 20:43 Patient visited by Luciana Crow,[place]. cf2 21:38 Patient visited by Luciana Crow RN. cf2 21:46 Patient visited by Luciana Crow,[place]. cf2 21:49 Alayna Trejo MD is Attending Physician. cf2 06/19 10:40 T-Sheet-- Draft Copy was scanned into [employer] and attached to record. gb 17:02 Trend VS was scanned into [employer] and attached to record. gb 06/20 18:22 PCR was scanned into [employer] and attached to record. kf3 Administered Medications: Discontinued: NS 0.9% 1000 ml IV at 250 mL/hr continuous Discontinued: Potassium Chloride in 100cc sterile water 10 mEq IV at 100 mL/hr once over 1 hrs 06/18 15:40 Drug: NS 0.9% 1000 ml [sodium chloride 0.9 % intravenous solution] Route: IV; Rate: 250 kr3 mL/hr; Site: left hand; 21:36 Follow up: Response: No significant change. cf2 15:53 Drug: LORazepam 0.5 mg [lorazepam 2 mg/mL injection solution (0.25 mL)] Route: IVP; ja5 Site: left hand; 21:36 Follow up: Response: No significant change. cf2 16:48 Drug: Potassium Chloride in 100cc sterile water 10 mEq [potassium chloride 10 mEq/100 ja5 mL intravenous piggyback] {Co-Signature: kr3 (Stacey Sanford RN).} Route: IV; Rate: 100 mL/hr; Infused Over: 1 hrs; Site: right antecubital; 16:53 Drug: Potassium Chloride 40 mEq [potassium chloride ER 10 mEq tablet,extended release ja5 (4 tabs)] Route: PO; 21:36 Follow up: Response: No significant change. cf2 18:02 Drug: -Haloperidol Lactate 2 mg [haloperidol lactate 5 mg/mL injection solution (0.4 kr3 mL)] Route: IM; Site: left deltoid; 21:36 Follow up: Response: No significant change. cf2 19:09 Drug: LORazepam 0.5 mg [lorazepam 2 mg/mL injection solution (0.25 mL)] Route: IVP; kr3 Site: right hand; 21:35 Follow up: Response: No significant change. cf2 Attachments: 17:02 Trend VS gb Order Results: Lab Order: Acetaminophen Level; SPEC'M 06/18/16 15:32 Test: ACETAMINOPHEN LEVEL; Value: < 2.0; Range: 10.0-30.0; Abnormal: Below low normal; Units: UG/ML; Status: F Lab Order: CBC with Diff; SPEC'M 06/18/16 14:38 Test: WHITE BLOOD COUNT; Value: 7.6; Range: 4.0-10.0; Units: K/mm3; Status: F Test: RED BLOOD COUNT; Value: 4.33; Range: 4.00-5.40; Units: M/mm3; Status: F Test: HEMOGLOBIN; Value: 12.9; Range: 12.0-16.0; Units: g/dl; Status: F Test: HEMATOCRIT; Value: 40.0; Range: 36.0-47.0; Units: %; Status: F Test: MEAN CORPUSCULAR VOLUME; Value: 92.4; Range: 80.0-96.0; Units: fl; Status: F Test: MEAN CORPUSCULAR HEMOGLOBIN; Value: 29.9; Range: 27.0-33.0; Units: pg; Status: F Test: MEAN CORPUSCULAR HGB CONC; Value: 32.4; Range: 32.0-36.5; Units: g/dl; Status: F Test: RED CELL DISTRIBUTION WIDTH; Value: 13.6; Range: 11.5-14.5; Units: %; Status: F Test: PLATELET COUNT, AUTOMATED; Value: 203; Range: 150-450; Units: k/mm3; Status: F Test: NEUTROPHILS %; Value: 74.6; Range: 36.0-66.0; Abnormal: Above high normal; Units: %; Status: F Test: LYMPH %; Value: 17.6; Range: 24.0-44.0; Abnormal: Below low normal; Units: %; Status: F Test: MONO %; Value: 4.4; Range: 0.0-5.0; Units: %; Status: F Test: EOS %; Value: 1.5; Range: 0.0-3.0; Units: %; Status: F Test: BASO %; Value: 0.3; Range: 0.0-1.0; Units: %; Status: F Test: LARGE UNSTAINED CELL %; Value: 1.6; Range: 0.0-4.0; Units: %; Status: F Test: NEUTROPHILS #; Value: 5.7; Range: 1.8-7.7; Units: K/mm3; Status: F Test: LYMPH #; Value: 1.3; Range: 1.5-4.5; Abnormal: Below low normal; Units: K/mm3; Status: F Test: MONO #; Value: 0.3; Range: 0.0-0.8; Units: K/mm3; Status: F Test: EOS #; Value: 0.1; Range: 0.0-0.50; Units: K/mm3; Status: F Test: BASO #; Value: 0.0; Range: 0.0-0.2; Units: K/mm3; Status: F Test: LARGE UNSTAINED CELL #; Value: 0.1; Range: 0.0-0.4; Units: K/mm3; Status: F Lab Order: Cardiac Injury Profile; SPEC'M 06/18/16 15:32 Test: CPK CREATINE PHOSPHOKINASE; Value: 97; Range: 26-192; Units: U/L; Status: F Test: CK-MB VALUE MASS; Value: 3.1; Range: 0.0-3.6; Units: NG/ML; Status: F Test: MB/CK RELATIVE INDEX; Value: 3.19; Range: < OR =4; Status: F Test Note: ; DIAGNOSIS CRITERIA MMB ng/ml Relative Index (RI) NON-AMI < or = 5 N/A DUNBAR ZONE > 5 < or = 4 AMI > 5 > 4 Lab Order: Drug Eval Toxicology ED Only; SPEC'M 06/18/16 15:06 Test: AMPHETAMINES LEVEL URINE; Value: NEGATIVE; Range: NEGATIVE; Status: F Test: BARBITURATES URINE; Value: NEGATIVE; Range: NEGATIVE; Status: F Test: BENZODIAZEPINES URINE; Value: NEGATIVE; Range: NEGATIVE; Status: F Test: CANNABINOIDS URINE; Value: NEGATIVE; Range: NEGATIVE; Status: F Test: COCAINE METABOLITE URINE; Value: NEGATIVE; Range: NEGATIVE; Status: F Test: METHADONE URINE; Value: NEGATIVE; Range: NEGATIVE; Status: F Test: OPIATES URINE; Value: NEGATIVE; Range: NEGATIVE; Status: F Test: TRICYCLIC ANTIDEPRESS URINE; Value: NEGATIVE; Range: NEGATIVE; Status: F Test Note: ; ALL PRESUMPTIVE POSITIVE FINDINGS ARE UNCONFIRMED NORMAL VALUES THRESHOLD IN NG/ML AMPHETAMINES 1000 METHAMPHETAMINES 1000 BARBITURATES 300 BENZODIAZEPINES 300 CANNABINOIDS (THC) 50 COCAINE METABOLITE 300 METHADONE 300 OPIATES 300 PHENCYCLIDINE 25 TRICYCLIC ANTIDEPRESSANTS 1000 RESULTS ARE FOR MEDICAL PURPOSES ONLY. ALL URINE SPECIMENS WILL BE SAVED FOR 3 DAYS. IF CONFIRMATION OF A PRESUMPTIVE POSTIVE SCREEN RESULT IS DESIRED, CALL CHEMISTRY ([phone]) AND REQUEST URINE TO BE SENT TO REFERENCE LAB. FOR A LIST OF CLOSELY RELATED COMPOUNDS PLEASE CALL THE LAB. Lab Order: Liver Profile; SPEC'M 06/18/16 15:32 Test: AST/SGOT; Value: 26; Range: 15-37; Units: U/L; Status: F Test: ALT/SGPT; Value: 23; Range: 12-78; Units: U/L; Status: F Test: ALKALINE PHOSPHATASE; Value: 74; Range: 45-117; Units: U/L; Status: F Test: BILIRUBIN,TOTAL; Value: 0.3; Range: 0.2-1.0; Units: MG/DL; Status: F Test: BILIRUBIN,DIRECT; Value: < 0.1; Range: 0.0-0.2; Units: MG/DL; Status: F Test: TOTAL PROTEIN; Value: 6.1; Range: 6.4-8.2; Abnormal: Below low normal; Units: GM/DL; Status: F Test: ALBUMIN; Value: 2.8; Range: 3.2-5.2; Abnormal: Below low normal; Units: GM/DL; Status: F Test: ALBUMIN/GLOBULIN RATIO; Value: 0.85; Range: 1.00-1.93; Abnormal: Below low normal; Status: F Lab Order: MED Profile; SPEC'M 10/17 15:32 Test: GLUCOSE, FASTING; Value: 106; Range: 83-110; Units: MG/DL; Status: F Test: BLOOD UREA NITROGEN; Value: 12; Range: 7-18; Units: MG/DL; Status: F Test: CREATININE FOR GFR; Value: 1.05; Range: 0.55-1.02; Abnormal: Above high normal; Units: MG/DL; Status: F Test: GLOMERULAR FILTRATION RATE; Value: 54.1; Range: >39; Status: F Test: SODIUM LEVEL; Value: 146; Range: 136-145; Abnormal: Above high normal; Units: MEQ/L; Status: F Test: POTASSIUM SERUM; Value: 2.5; Range: 3.5-5.1; Abnormal: Critical Low; Units: MEQ/L; Status: F Test: CHLORIDE LEVEL; Value: 106; Range: 98-107; Units: MEQ/L; Status: F Test: CARBON DIOXIDE LEVEL; Value: 35; Range: 21-32; Abnormal: Above high normal; Units: MEQ/L; Status: F Test: ANION GAP; Value: 5; Range: 8-16; Abnormal: Below low normal; Units: MEQ/L; Status: F Test: CALCIUM LEVEL; Value: 8.8; Range: 8.8-10.2; Units: MG/DL; Status: F Test Note: ; Units are mL/min/1.73 m2 Chronic Kidney Disease Staging per NKF: Stage I & II GFR >=60 Normal to Mildly Decreased Stage III GFR 30-59 Moderately Decreased Stage IV GFR 15-29 Severely Decreased Stage V GFR <15 Very Little GFR Left ESRD GFR <15 on GEOLOGICAL MANAGER Lab Order: Salicylate Level; [facility]06/18/16 15:32 Test: SALICYLATE LEVEL; Value: < 1.7; Range: 5.0-30.0; Abnormal: Below low normal; Units: MG/DL; Status: F Lab Order: Thyroid Stimulating Hormone; [facility]06/18/16 15:32 Test: THYROID STIMULATING HORMONE; Value: 2.910; Range: 0.358-3.740; Units: uIU/ML; Status: F Lab Order: Troponin; [facility]06/18/16 15:32 Test: TROPONIN I; Value: < 0.02; Range: < 0.10; Units: NG/ML; Status: F Test Note: ; Troponin I Reference Interval for [employer] [facility] LOCI: 99th Percentile= 0.00-0.045 ng/ml Risk Stratification: <= 0.10 ng/ml Decreased Risk for Adverse Clinical Events. 0.10-1.50 ng/ml Increased Risk for Adverse Clinical Events. Evaluation of additional criterion and/or repeat testing in 2-6 hours is suggested to rule out myocardial damage. >= 1.50 ng/ml Indicative of Myocardial Injury. Lab Order: Urinalysis; SPEC'M 06/18/16 15:06 Test: APPEARANCE, URINE; Value: CLEAR; Range: CLEAR; Status: F Test: COLOR, URINE; Value: YELLOW; Range: YELLOW; Status: F Test: PH,URINE; Value: 6.0; Range: 5.0-9.0; Units: UNITS; Status: F Test: SPECIFIC GRAVITY URINE AUTO; Value: 1.013; Range: 1.002-1.035; Status: F Test: PROTEIN, URINE AUTO; Value: NEGATIVE; Range: NEGATIVE; Units: mg/dL; Status: F Test: GLUCOSE, URINE (UA) AUTO; Value: NEGATIVE; Range: NEGATIVE; Units: mg/dL; Status: F Test: KETONE, URINE AUTO; Value: NEGATIVE; Range: NEGATIVE; Units: mg/dL; Status: F Test: UROBILINOGEN, URINE AUTO; Value: 0.2; Range: 0.0-2.0; Units: mg/dL; Status: F Test: BILIRUBIN, URINE AUTO; Value: NEGATIVE; Range: NEGATIVE; Status: F Test: NITRITE, URINE AUTO; Value: NEGATIVE; Range: NEGATIVE; Status: F Test: LEUKOCYTE ESTERASE, URINE AUTO; Value: NEGATIVE; Range: NEGATIVE; Status: F Test: BLOOD, URINE BLOOD; Value: 1+; Range: NEGATIVE; Abnormal: Above high normal; Status: F Test: WBC, URINE AUTO; Value: 5; Range: 0-3; Abnormal: Above high normal; Units: /HPF; Status: F Test: RBC, URINE AUTO; Value: 14; Range: 0-3; Abnormal: Above high normal; Units: /HPF; Status: F Test: BACTERIA, URINE AUTO; Value: NEGATIVE; Range: NEGATIVE; Status: F Test: SQUAMOUS EPITHELIAL CELL UR AU; Value: 0; Range: 0-6; Units: /HPF; Status: F Test: MUCUS, URINE; Value: SMALL; Range: NEGATIVE; Status: F Test: HYALINE CAST, URINE AUTO; Value: 0; Range: 0-1; Units: /LPF; Status: F Lab Order: PT/INR; SPEC'M 06/18/16 15:31 Test: PROTHROMBIN TIME; Value: 13.6; Range: 12.3-14.5; Units: SECONDS; Status: F Test: INR; Value: 1.03; Status: F Test Note: ; THERAPUTIC HUMAN INR VALUES INDICATIONS NORMAL RANGES PROPHYLAXIS/TREATMENT OF: VENOUS THROMBOSIS 2.0-3.0 PULMONARY EMBOLISM 2.0-3.0 PREVENTION OF SYSTEMIC EMBOLISM FROM: TISSUE HEART VALVES 2.0-3.0 ACUTE MYOCARDIAL INFARCTION 2.0-3.0 VALVULAR HEART DISEASE 2.0-3.0 ATRIAL FIBRILLATION 2.0-3.0 MECHANICAL VALVES(HIGH RISK) 2.5-3.5 RECURRENT MYOCARDIAL INFARCTION 2.5-3.5 Radiology Order: CT Head Without Contrast Test: CT Head Without Contrast REASON FOR EXAMINATION: altered loc; CT head without contrast:; ; History: Altered mental status.; ; Comparison: 10/30/2015; ; An area of decreased attenuation is present in the posterior left temporal and; parietal lobes. There is dilatation of the overlying cortical sulci. This; represents and old infarction. Areas of decreased attenuation are present in the; periventricular and subcortical white matter. This represents small vessel; ischemic disease. There is no intraparenchymal hemorrhage, mass or midline shift.; The ventricular system and cortical sulci as well as subarachnoid space in the; posterior fossa are dilated consistent with moderate volume loss. There is no; extracerebral collection. There is no fracture. The visualized sinuses are; clear.; ; IMPRESSION:; ; 1. 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 Small vessel ischemic disease.; ; 3. Moderate volume loss.; ; ; Signed by; Uriah Calderon MD 06/18/2016 03:27 P; Radiology Order: Chest, 1 View Test: Chest, 1 View REASON FOR EXAMINATION: altereed loc; Portable chest, AP view, 02:47 p.m.:; ; Comparison is 10/30/2015.; ; There are no focal infiltrates or effusions.; ; There is mild diffuse chronic interstitial coarsening, unchanged, compatible with; interstitial lung disease versus vascular engorgement.; ; Sternotomy wires and cardiomegaly are again noted, on changed.; ; Impression:; ; There is no significant interval change.; ; ; Signed by; Jose Davis MD 06/18/2016 03:23 P; Outcome: 06/18 15:08 CT Study completed. kr3 16:37 Decision to Hospitalize by Provider. ke 21:38 The following High Risk Discharge criteria are identified: Yes, Admitted to PCU cf2 accompanied by nurse. Condition: stable. Property :Personal belongings accompany Pt. 21:48 Discharge Assessment: Patient awake, alert and oriented x 3. No cognitive and/or cf2 functional deficits noted. Patient verbalized understanding of disposition instructions. Patient awake, alert, Oriented to person, patient administered narcotics - yes. Patient was admitted to the hospital or transferred to another facility. 21:49 Patient left the ED. cf2 Signatures: Dispatcher [employer] EDMS Sonia Shipley, Reg Reg gb Jonathon Joseph, Reg Reg lg Maximo Sanders, LAV CREWMAN LAV CREWMAN Stacey Green,RN RN kr3 Drake Womack, Reg Reg kf3 Karla Lan,RN RN ld5 Shahida Grewal1 Den Addison, ELECTROTYPE FINISHER ELECTROTYPE FINISHER jrd Rpua Fontana, ELECTROTYPE FINISHER ELECTROTYPE FINISHER rs6 Luciana Crow RN RN cf2 Love McneillRN [place] cole5 Stacey Sanford RN kr3 Corrections: (The following items were deleted from the chart) 17:46 15:09 Pulse 64bpm; Monitor; Pulse Ox 88%; ja5 ja5 19:04 18:56 General: Patient is very restless and confused, laying in stretcher, ELECTROTYPE FINISHER at ja5 bedside because had to go home. New IV started to right wrist, patient tolerated well.. ja5 Chart Complete MTDD
[2016-06-21] VITALS: PULSE 82
[2016-06-21 01:28] VITALS: BP 127/89
[2016-06-21 03:27] VITALS: BP 141/76
[2016-06-21 04:00] VITALS: PULSE 71
[2016-06-21] MEDS: LEVOTHYROXINE 0.075 MG TAB (75 MCG) PO SCH (05:17)
[2016-06-21 05:35] LABS: BASO % 0.2 % (0.0-1.0); EOS # 0.2 K/mm3 (0.0-0.50); EOS % 2.3 % (0.0-3.0); LARGE UNSTAINED CELL # 0.1 K/mm3 (0.0-0.4); LYMPH # 1.7 K/mm3 (1.5-4.5); LYMPH % 24.9 % (24.0-44.0); MEAN CORPUSCULAR HEMOGLOBIN 29.1 pg (27.0-33.0); MEAN CORPUSCULAR VOLUME 90.7 fl (80.0-96.0); MONO # 0.3 K/mm3 (0.0-0.8); MONO % 4.6 % (0.0-5.0); NEUTROPHILS # 4.5 K/mm3 (1.8-7.7); PLATELET COUNT, AUTOMATED 186 k/mm3 (150-450); RED CELL DISTRIBUTION WIDTH 13.7 % (11.5-14.5); WHITE BLOOD COUNT 6.9 K/mm3 (4.0-10.0)
[2016-06-21 05:50] LABS: BLOOD UREA NITROGEN 12 MG/DL (7-18); CALCIUM LEVEL 8.6 MG/DL (8.8-10.2); CARBON DIOXIDE LEVEL 29 MEQ/L (21-32); CREATININE FOR GFR 0.92 MG/DL (0.55-1.02); GLOMERULAR FILTRATION RATE > 60.0 (>39); GLUCOSE, FASTING 100 MG/DL (83-110)
--- NOTE | 2016-06-21 07:55 | IPNPDOC ---
Subjective General Date Seen The patient was seen on 06/21/16. Subjective Chief Complaint/HPI The patient is a 75-year-old female admitted with a reason for visit of Syncope. Events since last encounter Poor historian, does not provide any useful information. General: Denies: Chills, Fatigue, Malaise, Night Sweats, Normal Appetite, Other Symptoms, ROS Unobtainable Constitutional: Denies: Chills, Fatigue, Fever, Lethargy, Malaise, Night Sweats , Other, Weakness, Weight Loss Eyes: Denies: Conjunctivae inflammation, Eyelid inflammation, Other, Pain, Redness, Vision change ENT: Denies: Dysphagia, Ear Pain, Epistaxis, Head Aches, Other Symptoms, Post Nasal Drip, Sinus Congestion, Sore Throat Skin: Denies: Breakdown, Bruising, Dry, Itching, Jaundice, Lesions, Nail Changes, Other, Rash Pulmonary: Denies: Cough, Dyspnea, Other Symptoms, Pleuritic Chest Pain Cardiovascular: Denies: Chest Pain, Edema, Lt Headedness, Orthopnea, Other Symptoms, Palpitations, Paroxysmal Noc. Dyspnea Gastrointestinal: Denies: Abdominal Pain, Constipation, Diarrhea, Hematochezia , Melena, Nausea, Other Symptoms, Vomiting Objective Physical Examination General Exam: Positive: Alert, Cooperative, No Acute Distress, Other (elderly, frail) Eye Exam: Positive: Conjunctiva & lids normal, EOMI, PERRLA ENT Exam: Positive: Atraumatic, Mucous membr. moist/pink Neck Exam: Positive: Supple Chest Exam: Positive: Clear to auscultation, Normal air movement Heart Exam: Positive: Rate Normal, Regular Rhythm Telemetry: Positive: No significant arrhythmia Abdomen Exam: Positive: Normal bowel sounds, Soft, Negative: Tenderness Psych Exam: Negative: Oriented x 3 (oriented only to person) Assessment /Plan Problems Problems: (1) Syncope Status: Resolved Discussed With: Patient Problem Specific Plan: Monitor Clinically, Repeat Labs, Repeat Tests Problem Text: 2D echo with no cardiac etiology for syncopal episode. EEG pending. Continue telemetry monitoring, significant ectopy noted yesterday. Check orthostatics. (2) Hypernatremia Status: Acute Problem Specific Plan: Repeat Labs Problem Text: Likely secondary to poor PO intake. Check serum/urine osmolality. Likely start hypotonic fluids however doubt patient will tolerate keeping line in place. (3) UTI (urinary tract infection) Status: Acute Discussed With: Patient Problem Specific Plan: Monitor Clinically, Repeat Labs Problem Text: Cultures pending. IV Ceftriaxone for now. (4) Dementia Status: Chronic Problem Specific Plan: Monitor Clinically Problem Text: Agitation seems to have resolved for now. continue with 1:1 sitter for now haldol ordered, started namenda/donepezil Discussed with Gabe regarding her agitation. He states this is typical and has many episodes of agitation at home. He states theses episodes resolve on their own is she is given the opportunity to allow herself to calm down. (5) CAD (coronary artery disease) Status: Chronic Problem Text: s/p cabg as per documented history card markers negative x 3 no ecg changes (6) Hypothyroidism Status: Chronic Problem Specific Plan: Monitor Clinically Problem Text: Synthroid (7) Hyperlipidemia Status: Chronic Problem Text: Lipitor (8) CVA (cerebral vascular accident) Status: Chronic Problem Specific Plan: Monitor Clinically Problem Text: with residual right sided deficits as per history continue asa and statin therapy (9) Hypokalemia Status: Resolved Problem Specific Plan: Repeat Labs Problem Text: Follow up and replete as needed. Plan/VTE VTE Prophylaxis Ordered?: Yes (heparin sc) Plan Therapy: PT, OT Pt and Family Services: Home Care Diagnostics: Repeat Labs in AM, Other Diagnostics (eeg) Anticipated Discharge: Home, Home With Services, Assisted Living, [facility] VS, I&O, 24H, [facility] Vital Signs/I&O Vital Signs Date Time Temp Pulse Resp B/P Pulse Ox O2 Delivery O2 Flow Rate FiO2 06/21/16 04:00 Room Air 06/21/16 04:00 71 06/21/16 03:27 96.6 18 141/76 96 I&O- Last 24 Hours up to 6 AM 06/21/16 06:00 Intake Total 710 ml Output Total 700 ml Balance 10 ml Laboratory Data 24H LABS Laboratory Tests 2 06/20/16 15:22: Anion Gap 11, Blood Urea Nitrogen 10, Creatinine 0.90, Sodium Level 148H, Potassium Level 3.3L, Chloride Level 109H, Carbon Dioxide Level 28, Calcium Level 8.9, Glomerular Filtration Rate > 60.0, Magnesium Level 2.0 06/21/16 05:02: Anion Gap 11, Blood Urea Nitrogen 12, Creatinine 0.92, Sodium Level 155H, Potassium Level 3.7, Chloride Level 115H, Carbon Dioxide Level 29, Calcium Level 8.6L, Glomerular Filtration Rate > 60.0, White Blood Count 6.9, Red Blood Count 4.22, Hemoglobin 12.3, Hematocrit 38.3, Mean Corpuscular Volume 90.7, Mean Corpuscular Hemoglobin 29.1, Mean Corpuscular Hemoglobin Concent 32.0, Red Cell Distribution Width 13.7, Platelet Count 186, Neutrophils (%) (Auto) 66.0, Lymphocytes (%) (Auto) 24.9, Monocytes (%) (Auto) 4.6, Eosinophils (%) (Auto) 2.3, Basophils (%) (Auto) 0.2, Neutrophils # (Auto) 4.5, Lymphocytes # (Auto) 1.7, Monocytes # (Auto) 0.3, Eosinophils # (Auto) 0.2, Basophils # (Auto) 0.0, Large Unclassified Cells # 0.1, Large Unclassified Cells % 2.0 06/21/16 07:04: CBC/BMP Laboratory Tests 06/20/16 15:22 Calcium Level 8.9 06/21/16 05:02 Calcium Level 8.6 L, Red Blood Count 4.22, Mean Corpuscular Volume 90.7, Mean Corpuscular Hemoglobin 29.1, Mean Corpuscular Hemoglobin Concent 32.0, Red Cell Distribution Width 13.7, Neutrophils (%) (Auto) 66.0, Lymphocytes (%) (Auto) 24.9, Monocytes (%) (Auto) 4.6, Eosinophils (%) (Auto) 2.3, Basophils (%) (Auto ) 0.2, Neutrophils # (Auto) 4.5, Lymphocytes # (Auto) 1.7, Monocytes # (Auto) 0.3, Eosinophils # (Auto) 0.2, Basophils # (Auto) 0.0 Microbiology Microbiology 06/19/16 Blood Culture - Preliminary, Resulted No Growth after 48 hours. All Specime... 06/19/16 Blood Culture - Preliminary, Resulted No Growth after 48 hours. All Specime... 06/20/16 Urine Culture, Received Pending 06/18/16 Urine Culture - Final, Complete SANTY WESLEY MD Jun 21, 2016 07:55
[2016-06-21 08:00] VITALS: BP 141/76
[2016-06-21] MEDS: MIRTAZAPINE 15 MG TAB PO SCH (11:02)
[2016-06-21] MEDS: MEMANTINE 5MG TABLET (NAMENDA) PO SCH (11:03)
[2016-06-21] MEDS: ASPIRIN 81 MG ENTERIC TAB PO SCH (11:03)
[2016-06-21] MEDS: HEPARIN SOD (PORCINE) 5000 UNITS/ML VIAL SQ SCH (11:03)
[2016-06-21] MEDS: ATORVASTATIN 20 MG TAB PO SCH (11:03)
[2016-06-21] MEDS: cefTRIAXone SOD 1 GM in D5W MINI-BAG PLUS 50 ML IV SCH (11:04)
[2016-06-21 11:48] LABS: ANION GAP 9 MEQ/L (8-16); BLOOD UREA NITROGEN 11 MG/DL (7-18); CALCIUM LEVEL 9.3 MG/DL (8.8-10.2); CARBON DIOXIDE LEVEL 27 MEQ/L (21-32); CHLORIDE LEVEL 107 MEQ/L (98-107); CREATININE FOR GFR 0.91 MG/DL (0.55-1.02); GLOMERULAR FILTRATION RATE > 60.0 (>39); GLUCOSE, FASTING 119 MG/DL (83-110); POTASSIUM SERUM 3.7 MEQ/L (3.5-5.1); SODIUM LEVEL 143 MEQ/L (136-145)
[2016-06-21 12:00] VITALS: BP 115/68
[2016-06-21 12:02] LABS: SODIUM LEVEL 145 MEQ/L (136-145)
[2016-06-21 12:03] LABS: ANION GAP 7 MEQ/L (8-16); CHLORIDE LEVEL 109 MEQ/L (98-107); POTASSIUM SERUM 3.4 MEQ/L (3.5-5.1)
[2016-06-21] MEDS ORDERED: MEMA1TAB PO (12:27)
[2016-06-21] MEDS ORDERED: CEFD1CAP8 PO (12:28)
--- NOTE | 2016-06-24 07:09 | EEG ---
DATE OF PROCEDURE: 06/21/2016 REFERRING PHYSICIAN: Dr. Uriah Aviles DIAGNOSIS: Seizure. [id number]. HISTORY: The patient is a 75-year-old woman who was admitted at [facility] after an episode of losing consciousness. She has history of dementia. She is currently taking ceftriaxone, aspirin, Lipitor, mirtazapine, Aricept, Namenda. TECHNICAL DESCRIPTION: This digital EEG was recorded by 21 scalp, ear and two EKG electrodes and was reviewed in bipolar and referential montages following reformatting in 10-20 international electrode placement system. INTERPRETATION: The patient was noted to be in awake state during this EEG. Resting awake background rhythm consisted of 7-8 Hz theta activity measuring 10-30 microvolts in amplitude. No sleep was achieved. Hyperventilation could not be performed. Photic stimulation remained unremarkable. EKG revealed normal sinus rhythm. No focal, lateralizing or epileptiform abnormalities were seen. No clinical or electrographic seizures were recorded. CONCLUSION: This EEG in mostly awake state is abnormal due to presence of mild generalized slowing and disorganization of background consistent with nonspecific diffuse cerebral dysfunction such as seen in dementia and encephalopathy due to multiple potential causes. No epileptiform abnormalities were seen. Clinical correlation is recommended.
--- NOTE | 2016-06-30 15:09 | DS.PDOC ---
Discharge Summary General Date of Admission Jun 21, 2016 at 11:05 Date of Discharge Jun 21, 2016 at 15:20 Discharge Summary PROCEDURES PERFORMED DURING STAY: [None.] COMPLICATIONS/CHIEF COMPLAINT: Syncope ADMISSION DIAGNOSES: 1. Syncope 2. Dementia 3. CVA residual RUE weakness 4. CAD/CABG 5. Hypothyroidism 6. Hyperlipidemia DISCHARGE DIAGNOSES: 1. Rule out ACS 2. Syncopal episode 3. Dementia 4. CVA residual RUE weakness 5. CAD/CABG 6. Hypothyroidism 7. Hyperlipidemia HISTORY OF PRESENT ILLNESS: Patient is a 75-year old female presenting for episode of suspected loss of consciousness that occurred at rest with diaphoresis. HOSPITAL COURSE: Patient was admitted for syncopal episode. Patient was admitted to telemetry with ectopy noted, however no other significant events noted on telemetry. Further workup included EEG and orthostatics which were unremarkable. 2D echocardiogram was obtained which did not indicate any valvular etiology for a syncopal episode. Hospital stay was notable for episodes of agitation. This was discussed with her Gabe, who stated that this is her baseline, and at home these episodes resolve spontaneously. He is her primary care specialist, and would like to continue providing for her at home. Cased was discussed with PFS. Patient discharged home in stable condition with instructions as indicated. DISCHARGE MEDICATIONS: Please see below. ALLERGIES: Please see below. PHYSICAL EXAMINATION ON DISCHARGE: VITAL SIGNS: Please see below. GENERAL: NAD, elderly, frail HEENT: NC/AT, EOMI, PERRL NECK: supple CARDIOVASCULAR EXAMINATION: +S1S2, RRR RESPIRATORY EXAMINATION: CTA B/L ABDOMINAL EXAMINATION: soft, NT, +BS EXTREMITIES: no edema SKIN: no rashes NEUROLOGICAL EXAMINATION: right upper extremity weakness PSYCHIATRIC EXAMINATION: AAOx3 LABORATORY DATA: Please see below. DISCHARGE CONDITION: [Stable]. DISPOSITION: Discharge home ACTIVITY: As tolerated DIET: Low fat low cholesterol DISCHARGE PLAN AND INSTRUCTIONS: 1. Follow up PCP in 3-5 days. TIME SPENT ON DISCHARGE: Greater than 30 minutes. Microbiology Microbiology 06/20/16 Urine Culture - Final, Complete Escherichia Coli Klebsiella Pneumoniae Medications Scheduled Aspirin (Aspirin 81) 81 Mg Tab 81 MG PO DAILY Atorvastatin Calcium (Atorvastatin Calcium) 20 Mg Tab 20 MG PO DAILY PT TAKES IN AM Cefdinir (Cefdinir) 300 Mg Cap 300 MG PO BID Donepezil Hcl (Donepezil HCl) 5 Mg Tab 5 MG PO DAILY Levothyroxine Sodium (Synthroid) 75 Mcg Tab 75 MCG PO QAM Memantine Hydrochloride (Memantine HCl) 5 Mg Tab 5 MG PO DAILY Mirtazapine (Mirtazapine) 30 Mg Tab 30 MG PO DAILY Scheduled PRN Melatonin (Melatonin) 3 Mg Tab 3 MG PO DAILY PRN PRN AGITATION Allergies Coded Allergies: No Known Drug Allergy (Verified Allergy, Unknown, 08/11/12) SANTY WESLEY MD Jun 30, 2016 15:09
== END 2016-06-21 15:20 | disposition home or self-care (01) | DRG 641 ==
LOC: M ED 13:56 → M ED INP 17:34 → M PCU 21:58 → OBSVTOIN 06-21 11:05
PROVIDERS: ADMIT Internal Medicine; ATTEND Internal Medicine
DX: E87.6 Hypokalemia (principal); G81.91 Hemiplegia, unspecified affecting right dominant side; R55 Syncope and collapse; E86.0 Dehydration; I25.10 Atherosclerotic heart disease of native coronary artery without angina pectoris; E03.9 Hypothyroidism, unspecified; E78.5 Hyperlipidemia, unspecified; F03.90 Unspecified dementia, unspecified severity, without behavioral disturbance, psychotic disturbance, mood disturbance, and anxiety

== ENCOUNTER 2016-09-09 12:03 | Emergency (ER) | payer MEDICARE, MEDICAID ==
[~2016-09-09] VITALS: Ht 154.9 cm; Wt 55.3 kg
[~2016-09-09 12:03] MED LIST changes: +ASPI1TAB PO; +CEFD1CAP8 PO; +DONETAB5 PO; +MELA3TAB PO; +MEMA1TAB PO; +MIRT30TA3 PO
[2016-09-09] MEDS ORDERED: LORazepam 0.5 MG TAB PO ONE (13:45)
[2016-09-09] MEDS ORDERED: LORazepam 1 MG TAB PO ONE (14:15)
[2016-09-09 14:56] LABS: MEAN CORPUSCULAR HEMOGLOBIN 29.8 pg (27.0-33.0); MEAN CORPUSCULAR HGB CONC 31.7 g/dl (32.0-36.5); RED CELL DISTRIBUTION WIDTH 13.9 % (11.5-14.5); WHITE BLOOD COUNT 7.7 K/mm3 (4.0-10.0)
[2016-09-09 14:58] LABS: CALCIUM OXALATE CRYSTALS LARGE
[2016-09-09 15:22] LABS: METHADONE URINE NEGATIVE (NEGATIVE)
[2016-09-09 15:24] LABS: NEUTROPHILS % 65.1 % (36.0-66.0)
[2016-09-09 15:25] LABS: BASO % 0.3 % (0.0-1.0); DIFF SLIDE NUMBER 253; EOS # 0.1 K/mm3 (0.0-0.50); EOS % 1.8 % (0.0-3.0); LARGE UNSTAINED CELL # 0.2 K/mm3 (0.0-0.4); LARGE UNSTAINED CELL % 2.3 % (0.0-4.0); LYMPH % 26.1 % (24.0-44.0); MONO # 0.3 K/mm3 (0.0-0.8); MONO % 4.4 % (0.0-5.0); NEUTROPHILS # 4.9 K/mm3 (1.8-7.7)
[2016-09-09 15:31] LABS: ALBUMIN 2.9 GM/DL (3.2-5.2); ALBUMIN/GLOBULIN RATIO 0.76 (1.00-1.93); ALKALINE PHOSPHATASE 90 U/L (45-117); ALT/SGPT 28 U/L (12-78); ANION GAP 10 MEQ/L (8-16); AST/SGOT 23 U/L (15-37); BILIRUBIN,DIRECT 0.1 MG/DL (0.0-0.2); BILIRUBIN,TOTAL 0.4 MG/DL (0.2-1.0); BLOOD UREA NITROGEN 10 MG/DL (7-18); CALCIUM LEVEL 8.8 MG/DL (8.8-10.2); CARBON DIOXIDE LEVEL 30 MEQ/L (21-32); CHLORIDE LEVEL 108 MEQ/L (98-107); CREATININE FOR GFR 0.91 MG/DL (0.55-1.02); GLOMERULAR FILTRATION RATE > 60.0 (>39); GLUCOSE, FASTING 111 MG/DL (83-110); POTASSIUM SERUM 4.1 MEQ/L (3.5-5.1); SODIUM LEVEL 148 MEQ/L (136-145); TOTAL PROTEIN 6.7 GM/DL (6.4-8.2)
[2016-09-09 15:37] LABS: PLATELET COUNT, AUTOMATED 204 k/mm3 (150-450)
[2016-09-09 16:03] VITALS: BP 184/82
== END 2016-09-09 17:40 | disposition home or self-care (01) ==
LOC: M ED 14:01
DX: G30.8 Other Alzheimer's disease (principal); G47.00 Insomnia, unspecified; E78.5 Hyperlipidemia, unspecified; F17.200 Nicotine dependence, unspecified, uncomplicated; Z79.82 Long term (current) use of aspirin; Z79.899 Other long term (current) drug therapy
CPT/HCPCS: 36415; 80048; 80076; 80306; 81001; 84443; 85025; 87086; 99283; G0480

== ENCOUNTER 2017-10-22 15:22 | Inpatient (IN) | payer MEDICARE, MEDICAID ==
[2017-10-22 16:42] LABS: BASO % 0.3 % (0.0-1.0); EOS % 0.1 % (0.0-3.0); HEMATOCRIT 31.6 % (36.0-47.0); HEMOGLOBIN 10.5 g/dl (12.0-15.5); IMMATURE GRANULOCYTE % 0.4 % (0-3.0); LYMPH % 13.1 % (24.0-44.0); MEAN CORPUSCULAR HEMOGLOBIN 30.6 pg (27.0-33.0); MEAN CORPUSCULAR HGB CONC 33.2 g/dl (32.0-36.5); MEAN CORPUSCULAR VOLUME 92.1 fl (80.0-96.0); MONO # 0.3 10^3/uL (0.0-0.8); MONO % 3.5 % (0.0-5.0); NEUTROPHILS # 6.5 10^3/uL (1.8-7.7); NEUTROPHILS % 82.6 % (36.0-66.0); PLATELET COUNT, AUTOMATED 243 10^3/uL (150-450); RED BLOOD COUNT 3.43 10^6/uL (4.00-5.40); RED CELL DISTRIBUTION WIDTH 14.2 % (11.5-14.5); WHITE BLOOD COUNT 7.9 10^3/uL (4.0-10.0)
[2017-10-22] MEDS: LORazepam 2 MG/ML VIAL (J2060) IV (17:00)
[2017-10-22] MEDS: MORPHINE 2 MG/ML 1ML SYRINGE (J2270) IV (17:00)
[2017-10-22 17:08] LABS: ALBUMIN/GLOBULIN RATIO 0.49 (1.00-1.93); ALKALINE PHOSPHATASE 80 U/L (45-117); ALT/SGPT 15 U/L (12-78); ANION GAP 9 MEQ/L (8-16); AST/SGOT 24 U/L (7-37); BILIRUBIN,DIRECT 0.1 MG/DL (0.0-0.2); BILIRUBIN,TOTAL 0.7 MG/DL (0.2-1.0); BLOOD UREA NITROGEN 12 MG/DL (7-18); CALCIUM LEVEL 8.5 MG/DL (8.8-10.2); CARBON DIOXIDE LEVEL 31 MEQ/L (21-32); CHLORIDE LEVEL 99 MEQ/L (98-107); CPK CREATINE PHOSPHOKINASE 71 U/L (26-192); CREATININE FOR GFR 0.72 MG/DL (0.55-1.30); FREE THYROXINE INDEX 2.9 % (1.3-4.8); GLOMERULAR FILTRATION RATE > 60.0 (>39); GLUCOSE, FASTING 102 MG/DL (70-100); POTASSIUM SERUM 4.1 MEQ/L (3.5-5.1); SODIUM LEVEL 139 MEQ/L (136-145); T UPTAKE 35 % (30-39); THYROXINE (T4) 8.2 UG/DL (4.5-12.0); TOTAL PROTEIN 6.1 GM/DL (6.4-8.2); TROPONIN I 0.02 NG/ML (< 0.10)
[2017-10-22 17:13] LABS: CK-MB VALUE MASS 1.8 NG/ML (<3.6); MB/CK RELATIVE INDEX 2.53 (< OR =4); NT-PRO BNP 5125 PG/ML (<450)
[2017-10-22] MEDS ORDERED: ONDANSETRON 4MG/2ML VIAL (J2405) IV (18:15)
[2017-10-22] MEDS ORDERED: LORazepam 2 MG/ML VIAL (J2060) IV (18:15)
[2017-10-22] MEDS: LEVOTHYROXINE 100 MCG (0.1MG) VIAL IV (18:41)
[2017-10-22] MEDS: SCOPOLAMINE 1MG TRANSDERMAL PATCH TOP (22:46)
[2017-10-23] MEDS: MORPHINE 4 MG/ML 1ML VIAL/SYRINGE (J2270) IV (01:35)
[2017-10-23] MEDS: LEVOTHYROXINE 75MCG TABLET (0.075MG) PO (06:00)
[2017-10-24] MEDS: LORazepam 1 MG TAB PO (22:52)
[2017-10-24] MEDS: MORPHINE 10MG/0.5ML ORAL CONCENTRATE SOLUTION U/D SL (23:32)
[2017-10-25] MEDS: SCOPOLAMINE 1MG TRANSDERMAL PATCH TOP (21:00)
== END 2017-10-26 03:55 | disposition expired | DRG 592 ==
LOC: M ED 15:22 → M ED INP 18:09 → M MS5PR 21:55
DX: L89.154 Pressure ulcer of sacral region, stage 4 (principal); E43 Unspecified severe protein-calorie malnutrition; R53.2 Functional quadriplegia; R64 Cachexia; N17.9 Acute kidney failure, unspecified; F03.90 Unspecified dementia, unspecified severity, without behavioral disturbance, psychotic disturbance, mood disturbance, and anxiety; I10 Essential (primary) hypertension; E78.5 Hyperlipidemia, unspecified; E03.9 Hypothyroidism, unspecified; I25.10 Atherosclerotic heart disease of native coronary artery without angina pectoris; Z95.1 Presence of aortocoronary bypass graft; Z51.5 Encounter for palliative care